=== PATIENT | male | born 1940 | race Caucasian/White ===

== ENCOUNTER 2017-12-21 11:17 | Emergency (ER) | payer MEDICARE, SELFPAY ==
[2017-12-21 11:22] VITALS: BP 138/74; PULSE 89; RESP 18; TEMP 36.6; O2SAT 100
[2017-12-21 11:35] LABS: Bilirubin Small (Negative); Blood Large (Negative); Clarity Cloudy; Glucose Negative (Negative); Ketones Trace mg/dL (Negative); Leukocyte Esterase Moderate (Negative); Nitrite Negative (Negative)
[2017-12-21 11:43] LABS: C & S Indicated? Yes; WBC >50 HPF (0-5)
--- NOTE | 2017-12-21 11:47 | ED.GENADUL_ITS ---
Disposition Clinical Impression: UTI (urinary tract infection), Syncope Disposition: HOME Condition: Serious Instructions: Urinary Tract Infection in Men (ED), Syncope (ED) Additional Instructions: Please drink plenty of fluids to stay hydrated. Take antibiotic as prescribed. Please follow-up with your primary care physician. Call tomorrow. Return to the emergency department immediately for any worsening or new concerning symptoms. Prescriptions: Cephalexin [Keflex] 500 mg PO QID #27 capsule Referrals: Brandy Suresh [Primary Care Provider] - Medical Decision Making - Lab Data Laboratory Tests 12/21/17 11:30 Urine Color Yellow Urine Clarity Cloudy Urine pH 7.0 Ur Specific [place] 1.020 Urine Protein >=300 H Urine Ketones Trace H Urine Blood Large H Urine Nitrite Negative Urine Bilirubin Small H Urine Urobilinogen 1.0 H Ur Leukocyte Esterase Moderate H Urine RBC Not Applicable Urine WBC >50 Ur Epithelial Cells Not Applicable Urine Crystals Not Applicable Urine Bacteria Not Applicable Urine Mucus Not Applicable Ur Culture Indicated? Yes Urine Glucose Negative Laboratory Tests 12/21/17 12/21/17 12/21/17 11:30 11:58 11:58 WBC 18.14 H RBC 4.81 Hgb 15.0 Hct 43.5 MCV 90.4 MCH 31.2 MCHC 34.5 RDW 12.5 Plt Count 214 MPV 9.0 Immature Gran % 0.4 Neutrophils % 84.3 Lymphocytes % 9.6 Monocytes % 5.5 Eosinophils % 0.1 Basophils % 0.1 Absolute Neutrophils 15.29 H Absolute Lymphocytes 1.74 Absolute Monocytes 1.00 H Absolute Eosinophils 0.02 Absolute Basophils 0.02 Sodium 135 L Potassium 4.2 Chloride 100 Carbon Dioxide 29.5 Anion Gap 5.5 BUN 13 Creatinine 1.09 Estimated GFR/1.73 m2 >= 60.00 Glucose 110 H Calcium 8.3 L Magnesium 1.7 L Total Bilirubin 0.7 AST 13 L ALT 18 Alkaline Phosphatase 78 Troponin I < 0.02 Total Protein 7.2 Albumin 3.3 L Urine Color Yellow Urine Clarity Cloudy Urine pH 7.0 Ur Specific [place] 1.020 Urine Protein >=300 H Urine Ketones Trace H Urine Blood Large H Urine Nitrite Negative Urine Bilirubin Small H Urine Urobilinogen 1.0 H Ur Leukocyte Esterase Moderate H Urine RBC Not Applicable Urine WBC >50 Ur Epithelial Cells Not Applicable Urine Crystals Not Applicable Urine Bacteria Not Applicable Urine Mucus Not Applicable Ur Culture Indicated? Yes Urine Glucose Negative Results reviewed for labs ordered during visit: Yes - Medical Decision Making 11:52 --77-year-old male with history of urinary tract infection in the past, presents with increased urinary frequency and dysuria over the past couple days as well as recent fever and fatigue. Patient did experience a brief syncopal episode this morning at congregational and did not sustain trauma. Currently hemodynamically stable. Concern for UTI and dehydration. Consider other etiology for syncope. Patient has no chest pain or shortness of breath at this time. ECG reviewed and interpreted by me: Normal sinus rhythm 86 bpm, normal axis, peaked appearing t's V3 to V6. Nondiagnostic. Plan to check electrolytes as well as urinalysis. 13:00 --labs reviewed and leukocytosis noted. Urinalysis concerning for UTI. Plan to treat with ceftriaxone IV. 14:00 -- Patient reassessed: Remained hemo-dynamically stable. Orthostatic vitals taken after IV fluid bolus normal. Plan to discharge the patient on Keflex with close outpatient follow-up. I will asked care management to assist in arranging outpatient follow-up early this week given the syncopal episode and urinary tract infection. History of Present Illness - General Chief complaint: Urinary Stated complaint: UTI? Time Seen by Provider: 12/21/17 11:24 Source: patient, RN notes reviewed Mode of arrival: ambulatory Limitations: no limitations - History of Present Illness Initial comments: 77-year-old male with history of urinary tract infection from E. coli in the past, presents with chief complaint of dysuria. Patient notes that he has had painful urination for the past 2-3 days. He has associated increased urinary frequency over the same period of time. Patient notes associated fatigue and subjective fever over the past 1 week. Patient notes he generally just has not been feeling well. He also notes some constipation recently but did have a loose stool today. Patient also notes that while he was at congregational today standing for a couple minutes, he suddenly experienced a dizzy spell and had loss of consciousness. He did fall but did not hit his head. He has no headache at this time. No chest pain, palpitations or shortness of breath. Patient was evaluated by EMS refused transport to the hospital but did drive himself to the hospital sometime later. - Related Data Aspirin [Aspir 81] 81 mg PO PRN PRN 02/21/15 Cephalexin [Keflex] 500 mg PO QID #27 capsule 12/21/17 Allergies Allergy/AdvReac Type Severity Reaction Status Date / Time No Known Allergies Allergy Unverified 12/21/17 11:29 Review of Systems Constitutional: fever Respiratory: denies: cough, shortness of breath Cardiovascular: denies: chest pain, palpitations, syncope Gastrointestinal: denies: abdominal pain, nausea, vomiting Genitourinary: dysuria, frequency, hematuria (Small this morning). denies: discharge, testicular pain, testicular mass Neurological: denies: headache, weakness, numbness Comment: All other systems reviewed and negative Past Medical History - Past Medical History Medical history: hypertension Urinary tract infection - Social History Smoking status: never smoker General Exam - General Limitations: no limitations General appearance: alert, in no apparent distress - Head Head exam: Present: atraumatic, normocephalic - Eye Eye exam: Present: PERRL, EOMI - ENT ENT exam: Present: mucous membranes dry - Respiratory Respiratory exam: Present: normal lung sounds bilaterally. Absent: respiratory distress, wheezes, rales, rhonchi - Cardiovascular Cardiovascular Exam: Present: regular rate, normal rhythm, normal heart sounds - GI/Abdominal GI/Abdominal exam: Present: soft, normal bowel sounds. Absent: distended, tenderness, guarding, rebound, rigid - Extremities Exam Extremities exam: Absent: pedal edema, calf tenderness - Neurological Exam Neurological exam: Present: alert, CN II-XII intact, normal gait. Absent: altered, motor sensory deficit - Psychiatric Psychiatric exam: Present: normal affect - Skin Skin exam: Present: warm, dry, intact Course Vital Signs - 24 hr 12/21/17 11:22 Temperature 36.6 C Pulse 89 Respiratory 18 Rate Blood Pressure 138/74 Pulse Oximetry 100
[2017-12-21] MEDS: Lactated Ringers 1,000 ML 1000 ML IV (12:01)
[2017-12-21 12:03] LABS: Abs Immature Grans 0.07 k/cumm (0.0-0.09); Absolute Basophil Count 0.02 k/cumm (0.0-0.2); Absolute Lymphocyte Count 1.74 k/cumm (1.2-3.4); Basophils % 0.1; Eosinophils % 0.1; HCT 43.5 % (40.0-50.0); Immature Grans % 0.4; Lymphocytes % 9.6; Mean Corp. HGB Concentration 34.5 g/dL (32.0-36.0); Mean Corpuscular Hemoglobin 31.2 pg (27.0-33.0); Mean Corpuscular Volume 90.4 fL (80-95); Monocytes % 5.5; Neutrophils % 84.3; Platelet Count 214 x1000/uL (130-400); RBC 4.81 m/cumm (4.50-6.00); RBC Distribution Width 12.5 % (11.8-14.1); White Blood Cell Count 18.14 k/cumm (4.4-10.8)
[2017-12-21 12:08] LABS: Absolute Eosinophil Count 0.02 k/cumm (0.0-0.7); Absolute Neutrophil Count 15.29 k/cumm (1.2-6.7)
[2017-12-21 12:23] LABS: ALT 18 U/L (12-78); AST 13 U/L (15-37); Albumin 3.3 g/dL (3.4-5.0); Alkaline Phosphatase 78 U/L (46-116); Anion Gap 5.5 mmol/L (3-11); BUN 13 mg/dL (7-18); Bilirubin, Total 0.7 mg/dL (0.2-1.0); CO2 29.5 mmol/L (21.0-32.0); CREATININE 1.09 mg/dL (0.70-1.30); Calcium 8.3 mg/dL (8.5-10.1); Chloride 100 mmol/L (98-107); Glucose 110 mg/dL (70-100); Magnesium 1.7 mg/dL (1.8-2.4); Potassium 4.2 mmol/L (3.5-5.1); Sodium 135 mmol/L (136-145); Total Protein 7.2 g/dL (6.4-8.2)
[2017-12-21 12:34] LABS: Troponin I < 0.02 ng/mL (0.00-0.06)
[2017-12-21 13:20] VITALS: BP 138/77; BP 152/67; BP 154/85; PULSE 84; PULSE 86; PULSE 87
[2017-12-21] MEDS: Magnesium Oxide 400 MG TAB PO (14:22)
[2017-12-21 14:48] VITALS: BP 131/74; PULSE 78; RESP 16; TEMP 36.6; O2SAT 100
--- NOTE | 2017-12-22 11:46 | PDOC.ERCMPRO ---
Care Management Progress Note 12/22-Dr. Suyapa Martínez requested assistance with a PCP (Demetrice) f/u this week for UTI/syncopal episode. Referral faxed to [facility] today.
== END 2017-12-21 14:46 | disposition home or self-care (01) ==
PROVIDERS: Emergency Provider Student in an Organized Health Care Education/Training Program; PCP Family Medicine
DX: N39.0 Urinary tract infection, site not specified (principal); R55 Syncope and collapse; I10 Essential (primary) hypertension; Z87.440 Personal history of urinary (tract) infections
CPT/HCPCS: 93005; 96361; 96365; 99284 ×2; J0696; 36415; 80053; 81003; 81015; 83735; 84484; 85025; 87086; 93010

== ENCOUNTER → 2017-12-22 14:07 | Outpatient (REF) | payer MEDICARE, SELFPAY ==
[2017-12-22 22:42] LABS: Bilirubin Negative (Negative); Blood Negative (Negative); Clarity Clear; Glucose Negative (Negative); Ketones Negative (Negative); Leukocyte Esterase Small (Negative); Nitrite Negative (Negative); Urobilinogen 0.2 EU/dL (Up TO 0.2)
[2017-12-22 22:56] LABS: Bacteria Few HPF (Negative); C & S Indicated? Yes; Casts Negative LPF (Negative); Crystals Negative HPF (Negative); Epithelial Cells Negative HPF (Negative); Mucus Negative (Negative); WBC 20-50 HPF (0-5)
== END ==
LOC: NCHCN 14:07
PROVIDERS: PCP Family Medicine; Visit Provider Nurse Practitioner
DX: R30.0 Dysuria (principal); R31.9 Hematuria, unspecified
CPT/HCPCS: 81003; 81015; 87086

== ENCOUNTER 2018-06-01 19:47 | Emergency (ER) | payer MEDICARE, SELFPAY ==
[2018-06-01 20:14] VITALS: BP 184/86; PULSE 82; RESP 16; TEMP 36.2; O2SAT 97
[2018-06-01 21:07] VITALS: RESP 18
--- NOTE | 2018-06-01 21:12 | ED.GENADUL_ITS ---
Discharge Plan Disposition Patient Disposition: HOME Condition: Improving Discharge Details Chief Complaint: GenMedical Clinical Impression: Fatigue, Elevated blood pressure reading Primary Care Provider: Brandy Suresh ED Provider: Juan Francisco Morales Home Meds and New Rx's Prescriptions: Continued aspirin [Aspir-81] 81 MG tablet,delayed release (DR/EC) 81 mg PO PRN PRNRF: 0 Discharge Instructions Instructions: Hypertension (ED) Additional Instructions: Your EKG today revealed changes compared to prior EKG. It is recommended thatyou have an outpatient stress test. Please discuss this with your doctor tomorrow. If your blood pressure remains elevated, you may need treatment for this. Please discuss this with your doctor. Return to the ER for any worsening or new concerning symptoms. Referrals: Brandy Suresh [Primary Care Provider] - Discharge Data Discharge Date/Time-TO BE ENTERED AT DEPARTURE: 06/02/18 00:53 Medical Decision Making <Lenny Martínez MD - Last Filed: 06/30/18 21:46> 23:10 --78-year-old male here with elevated blood pressure and generally not feeling well today. Patient quite anxious about recently being diagnosed with macular degeneration. I suspect his elevated blood pressure is related to this anxiety. He has no associated chest pain or shortness of breath. No abdominal pain. No headache or focal neurologic deficits. Screening EKG was reviewed and interpreted by me: Sinus rhythm 78 bpm, normal axis, T wave inversions are noted in lead III, there is significant artifact and a second EKG was obtained. Second EKG reviewed and interpreted by me: Sinus rhythm 72 bpm, normal axis, T wave inversions are noted in lead III and aVF. Peaked Ts noted. T wave inversions noted in lead III are new compared to prior EKG from 12/21/2017. Consider ischemic heart disease. Initial troponin negative. Plan for delta troponin. <Juan Francisco Morales MD - Last Filed: 06/02/18 00:50> Received signout from Dr. Martínez. Please see his note regarding details of initial presentation, history, plan of care. Patient's repeat troponin was unremarkable. He remains chest pain-free. He has an outpatient stress test arranged by Dr. Martínez. Discussed with him home management as well as return precautions. He is stable for discharge at this time Lab Data Lab results reviewed: Yes I reviewed the patient's lab results. Laboratory Results - last 24 hr 06/01/18 06/01/18 06/02/18 21:29 21:29 00:15 WBC 8.86 RBC 5.32 Hgb 16.5 Hct 47.9 MCV 90.0 MCH 31.0 MCHC 34.4 RDW 12.7 Plt Count 210 MPV 9.6 Immature Gran % 0.1 Neutrophils % 56.5 Lymphocytes % 33.2 Monocytes % 8.9 Eosinophils % 1.0 Basophils % 0.3 Absolute Neutrophils 5.00 Absolute Lymphocytes 2.94 Absolute Monocytes 0.79 H Absolute Eosinophils 0.09 Absolute Basophils 0.03 Sodium 140 Potassium 4.4 Chloride 102 Carbon Dioxide 30.0 Anion Gap 8.0 BUN 13 Creatinine 0.96 Estimated GFR/1.73 m2 >= 60.00 Glucose 106 H Calcium 9.0 Magnesium 2.1 Total Bilirubin 0.6 AST 24 ALT 39 Alkaline Phosphatase 104 Troponin I 0.02 0.02 Total Protein 8.1 Albumin 4.2 HPI <Lenny Martínez MD - Last Filed: 06/30/18 21:46> General Mode of arrival: ambulatory . Date/Time Provider Initiated Documentation: 06/01/18 21:09 . Limitations to Documentation: no limitations . Information obtained by: patient . HPI Narrative: 78-year-old male with history of intermittent hypertension, early macular degeneration, here with chief complaint of elevated blood pressure. Patient notes he was going to see an afternoon babysitter in [place] today and was quite anxious and stressed about diagnosis of macular degeneration. He notes that when he checked his blood pressure in the ophthalmology office it was elevated with a systolic of 200. He notes that he is generally not been feeling well today. Specifically states he is felt tired with weakness in his legs. No associated chest pain or shortness of breath. No leg swelling or calf pain. Symptoms are mild. No modifiers. Related Data Home Medications Medication Instructions Recorded Confirmed aspirin [Aspir-81] 81 mg PO PRN PRN 06/18/14 06/01/18 Allergies Allergy/AdvReac Type Severity Reaction Status Date / Time No Known Allergies Allergy Unverified 06/01/18 20:23 General Stated Complaint: GenMedical TALIB: 3 Review of Systems <Lenny Martínez MD - Last Filed: 06/30/18 21:46> Review of Systems All systems reviewed & are unremarkable except as noted in HPI and below Constitutional Reports as per HPI and Denies fever(s) Cardiovascular Denies chest pain, Denies diaphoresis, Denies syncope, Denies lightheadedness, Denies palpitations and Denies dyspnea Respiratory Denies cough and Denies dyspnea Neurologic Denies syncope Endocrine Denies palpitations PFSH <Lenny Martínez MD - Last Filed: 06/30/18 21:46> Medical History Macular degeneration (Chronic) Social History Smoking and Tabacco status: Never Exam <Lenny Martínez MD - Last Filed: 06/30/18 21:46> Const General: cooperative and no acute distress HENMT Head: normocephalic and atraumatic Mouth: moist mucous membranes Eyes Conjunctivae: normal conjunctivae Sclera: normal sclerae EOM: EOM intact bilaterally Neck Neck: trachea midline and supple Resp Auscultation: clear to auscultation bilaterally, no rales, no rhonchi and no wheezes Cardio Jugular venous pressure: no JVD Rate: regular rate and not tachycardic Rhythm: regular rhythm GI Palpation: soft, not firm, no guarding, no masses, not rigid and nontender Skin General skin exam: no rashes or lesions noted Neuro General: alert, awake, oriented x3 and tone normal Extrem General: no edema Psych Appearance: grossly normal Mental Status: mental status grossly normal Speech and Movement: speech and movement normal Mood: anxious mood Affect: normal affect Course <Lenny Martínez MD - Last Filed: 06/30/18 21:46> Vital Signs Temperature 36.2 C L 06/01/18 20:14 Pulse 82 06/01/18 20:14 Respiratory Rate 16 06/01/18 20:14 Blood Pressure 184/86 H 06/01/18 20:14 Pulse Oximetry 97 06/01/18 20:14 Temperature 36.2 C L 06/01/18 20:14 Temperature Source Skin 06/01/18 20:14 Pulse 82 06/01/18 20:14 Respiratory Rate 18 06/01/18 21:07 Respiratory Effort Non-Labored 06/01/18 21:07 Respiratory Depth Normal 06/01/18 21:07 Respiratory Pattern Normal 06/01/18 21:07 Blood Pressure 184/86 H 06/01/18 20:14 Blood Pressure Position Sitting 06/01/18 20:14 Pulse Oximetry 97 06/01/18 20:14 Oxygen Delivery Method Room Air 06/01/18 20:14 Oxygen Flow Rate 0 06/01/18 20:14 Pain Level 0 06/01/18 20:14 Sign Out <Lenny Martínez MD - Last Filed: 06/30/18 21:46> Sign Out Data: Sign Out Comment: Plan for repeat trop. If neg, plan for outpatient follow-up and stress testing. Last updated by Lenny Martínez MD at 06/01/18 23:50
[2018-06-01 21:37] LABS: Abs Immature Grans 0.01 k/cumm (0.0-0.09); Absolute Basophil Count 0.03 k/cumm (0.0-0.2); Absolute Eosinophil Count 0.09 k/cumm (0.0-0.7); Absolute Lymphocyte Count 2.94 k/cumm (1.2-3.4); Absolute Monocyte Count 0.79 k/cumm (0.11-0.7); Basophils % 0.3; HCT 47.9 % (40.0-50.0); HGB 16.5 g/dL (13.5-17.5); Immature Grans % 0.1; Lymphocytes % 33.2; Mean Corp. HGB Concentration 34.4 g/dL (32.0-36.0); Mean Platelet Volume 9.6 fL (8.0-11.0); Monocytes % 8.9; Neutrophils % 56.5; Platelet Count 210 x1000/uL (130-400); RBC 5.32 m/cumm (4.50-6.00); RBC Distribution Width 12.7 % (11.8-14.1); White Blood Cell Count 8.86 k/cumm (4.4-10.8)
[2018-06-01 21:49] LABS: ALT 39 U/L (12-78); AST 24 U/L (15-37); Albumin 4.2 g/dL (3.4-5.0); Alkaline Phosphatase 104 U/L (46-116); BUN 13 mg/dL (7-18); Bilirubin, Total 0.6 mg/dL (0.2-1.0); CREATININE 0.96 mg/dL (0.70-1.30); Chloride 102 mmol/L (98-107); Glucose 106 mg/dL (70-100); Magnesium 2.1 mg/dL (1.8-2.4); Potassium 4.4 mmol/L (3.5-5.1); Sodium 140 mmol/L (136-145); Total Protein 8.1 g/dL (6.4-8.2); Troponin I 0.02 ng/mL (0.00-0.06)
[2018-06-01 22:15] VITALS: BP 173/89; PULSE 84; RESP 18; TEMP 36.5; O2SAT 98
[2018-06-01 23:57] VITALS: BP 194/91; PULSE 80; RESP 16; O2SAT 99
[2018-06-02 00:42] LABS: Troponin I 0.02 ng/mL (0.00-0.06)
== END 2018-06-02 00:53 | disposition home or self-care (01) ==
PROVIDERS: Student in an Organized Health Care Education/Training Program; Emergency Provider Emergency Medicine; PCP Family Medicine
DX: R53.83 Other fatigue (principal); R03.0 Elevated blood-pressure reading, without diagnosis of hypertension
CPT/HCPCS: 36415; 80053; 93005; 99284; 83735; 84484; 85025; 93010

== ENCOUNTER 2018-06-05 00:27 | Outpatient (CLI) | payer MEDICARE, SELFPAY ==
--- NOTE | 2018-06-05 13:00 | ETT_ITS ---
*[facility]* *[facility]* [address] [place] [address] Stress Electrocardiography Carlos protocol Date of study: 06/05/2018 *PATIENT PRESENTATION* Height: 167.6cm (66in) Blood Pressure: Weight: 68.2kg (150lb) BSA: 1.79m^2 Referring physician: Lenny Martínez Ordering physician: Lenny Martínez Impressions: Abnormal study , ST depressions without angina. Summary: 1. Stress ECG conclusions: The stress ECG is positive. Maximal ST change occurred during the recovery phase (3-6min into recovery). Stress ECG change: downsloping depression. Severity: 1.5-2.7mm. In lead groups: II, III, aVF and V4-6. Occasional ventricular ectopy. 2. Stress: The target heart rate was achieved. There is resting hypertension with a blunted response to stress. The patient experienced no chest pain during stress. Exercise capacity is mildly diminished for age. Recommendations: Discussed results with PCP Dr. Suresh, recommended cardiology follow-up. Indication: I10. History: REASON FOR VISIT: PT WAS SEEN IN THE ED ON 06/01/18 FOR EVALUATION OF FATIGUE AND AN ELEVATED BLOOD PRESSURE READING. PT HAD CHECKED HIS BLOOD PRESSURE THAT SAME DAY AND REPORTED THE SYSTOLIC READING WAS 200. PT DENIES ANY CHEST PAINS OR SHORTNESS OF BREATH. Risk factors: Family history of coronary artery disease. Hypertension. Dyslipidemia. Cholesterol: 254mg/dl. HDL: 43mg/dl. LDL: 189mg/dl. Triglycerides: 125mg/dl. ALLERGIES: NO KNOWN ALLERGIES. MEDICATIONS: LISINOPRIL 20 MG DAILY. ASPIRIN 81 MG PRN. VITAMIN D. VITAMIN C. VITAMIN D3. SALPALMETTO 2-3 DAILY. POTASSIUM PRN. MAGNESIUM DAILY. LECITHIN 1 X DAILY. PT DOES NOT KNOW THE DOSES OF THESE VITAMIN SUPPLEMENTS. Protocol: Carlos protocol. Baseline ECG: SINUS RHYTHM. HR 80 BPM. Stress protocol: + +---+ + !Stage !HR !BP (mmHg) ! + +---+ + !Baseline supine !80 !182/94 (123) ! + +---+ + !Baseline standing !89 !192/90 (124) ! + +---+ + !Stage I; 1.7mph, 10degrees; 3 min !126!200/104 (136)! + +---+ + !Stage II; 2.5mph, 12degrees; 3 min!135! ! + +---+ + !Peak stress !140! ! + +---+ + !Recovery; 1 min !112!198/88 (125) ! + +---+ + !Recovery; 3 min !99 !178/78 (111) ! + +---+ + !Recovery; 9 min !99 !174/86 (115) ! + +---+ + !Recovery; 12 min !94 !168/76 (107) ! + +---+ + * Stress results: Maximal heart rate during stress was 140bpm (97% of maximal predicted heart rate). The maximal predicted heart rate was 144bpm. The target heart rate was achieved. There is resting hypertension with a blunted response to stress. The rate-pressure product for the peak heart rate and blood pressure was 67701tx Hg/min. The patient experienced no chest pain during stress. Exercise capacity is mildly diminished for age. Stress ECG: TREADMILL PORTION OF STRESS TEST ENDED IN 5 MINUTES DUE TO FATIGUE HYPERTENSIVE PRE-TREADMILL TESTING. NORMAL HEART RATE AND BLOOD PRESSURE RESPONSE TO STRESS TESTING MAX HR = 140 % OF TARGET = 97 OCCASIONAL PVCs. APPROXIMATE METS ACHIEVED = 7.[address] SEGMENT DEPRESSIONS NOTED IN LEADS V3, V4, V5 & V6 BY 3 MINUTES OF TREADMILL EXERCISE BECOMING DOWNWARD SLOPING BY 3 MINUTES POST EXERCISE (RECOVERY PERIOD) DEPRESSIONS NOTED UP UNTILL [address] COTA UPDATED. EKG RECHECKED. ST SEGMENTS RETURNED TO BASELINE. INSTRUCTIONS GIVEN TO PATIENT THAT UNTILL HIS FOLLOW UP WITH CARDIOLOGY NEXT WEEK HE IS INSTRUCTED TO: TO TAKE HIS LOW DOSE ASPIRIN DAILY. NO STRENUOUS ACTIVITY. AND TO RETURN TO THE ED IF HE EXPERIENCES ANY CHEST PAIN/PRESSURE OR GENERALLY FEELS UNWELL. PT VERBALIZED UNDERSTANDING AND LEFT CARDIAC STRESS LAB AMBULATORY AND IN NO PAIN OR DISCOMFORT. MILDLY DIMINISHED FUNCTIONAL CAPACITY FOR EXERCISE. The stress ECG is positive. Maximal ST change occurred during the recovery phase (3-6min into recovery). Stress ECG change: downsloping depression. Severity: 1.5-2.7mm. In lead groups: II, III, aVF and V4-6. Occasional ventricular ectopy. Rubio treadmill score: -9. This score predicts a moderate risk of cardiac events. Study data: Yessica Cota MD supervised and was readily available during the procedure. This study was interpreted by [facility]. Study status: Routine. Consent: The risks, benefits, and alternatives to the procedure were explained to the patient and informed consent was obtained. Procedure: Initial setup. A baseline ECG was recorded. Surface ECG leads and manual cuff blood pressure measurements were monitored. Heart sounds: Normal. Lung sounds: Normal. Treadmill exercise testing was performed using the Carlos protocol. Study completion: The patient tolerated the procedure well and was discharged from the lab. Discharge: The patient left the laboratory in stable condition. Birthdate: Patient birthdate: 1940. Sex: Gender: male. Study date: Study date: 06/05/2018. Study time: 00:01 AM. Signature Documentation: The Stress ECG portion of this study was interpreted by Yessica Cota MD. Electronically signed by Yessica Cota 06/05/2018 17:20
== END 2018-06-05 00:47 ==
PROVIDERS: PCP Family Medicine; Visit Provider Student in an Organized Health Care Education/Training Program
DX: R94.31 Abnormal electrocardiogram [ECG] [EKG] (principal); R94.30 Abnormal result of cardiovascular function study, unspecified; I10 Essential (primary) hypertension; E78.5 Hyperlipidemia, unspecified; Z82.49 Family history of ischemic heart disease and other diseases of the circulatory system
CPT/HCPCS: 93016; 93018; 93017

== ENCOUNTER 2018-07-02 00:11 | Outpatient (CLI) | payer MEDICARE, SELFPAY ==
--- NOTE | 2018-07-02 14:40 | MERGEMPI_ITS ---
*[facility]* *[facility]* [address] [place] [address] Myocardial Perfusion Imaging - SPECT Carlos protocol Date of study: 07/02/2018 *PATIENT PRESENTATION* Height: 167.6cm (66in) Blood Pressure: Weight: 66.8kg (147lb) BSA: 1.77m^2 Referring physician: Apolinar Alanis Ordering physician: Apolinar Alanis Impressions: Abnormal study after maximal exercise. Summary: 1. Myocardial perfusion imaging: There is a large sized, severely intense, predominantly reversible defect involving the basal and mid inferoseptal, apical inferior, mid inferior, and basal inferior, and basal inferolateral and mid inferolateral wall(s). This suggests large ischemia in the distribution of right coronary artery or the left circumflex coronary artery. 2. The calculated left ventricular ejection fraction after stress: 62%. LV global systolic function is normal. 3. Stress ECG conclusions: The stress ECG is positive. Maximal ST change occurred during the recovery phase. Stress ECG change: downsloping depression. Severity: greater than 3mm. In lead groups: V3, V4, V5 and V6. Delayed resolution of ST depression >15min into recovery. 4. Stress: The target heart rate was achieved. There is resting hypertension with a hypertensive response to stress. The patient experienced no chest pain during stress. Exercise capacity is mildly diminished for age. Recommendations: Highly abnormal stress EKG and nuclear imaging findings d/w patient. Strongly recommended immediate ED workup in preparation of transfer for cardiac cath. Urgent and critical findings: A critical finding, large ischemia and severe ST depression in recovery, was reported to Dr. Martínez, by Dr. Cota, on 07/02/2018, at 05:00 PM. Indication: R94.31. History: REASON FOR VISIT: FOLLOW UP MPI NUCLEAR STRESS TEST DUE TO AN ABNORMAL REGULAR TREADMIL STUDY; ST DEPRESSIONS WITHOUT ANGINA ON 06/05/18. PATIENT DENIES CHEST PAIN UPON ARRIVAL TO TESTING TODAY. SIGNIFICANT PAST MEDICAL HISTORY: HYPERTENSION--OF NOTE PATIENT REPORTS HE HAS NOT TAKEN HIS LISINOPRIL FOR APPOXIMATELY 2 WEEKS NOW. SMOKING STATUS: NEVER. EXERCISE STATUS: VERY ACTIVE WITH ADL'S. Risk factors: Family history of coronary artery disease. Hypertension. Dyslipidemia. Cholesterol: 254mg/dl. HDL: 43mg/dl. LDL: 189mg/dl. Triglycerides: 125mg/dl. Imaging Technique: Protocol: Carlos protocol. Acquisition: Gated SPECT; 1 day - rest/stress. The patient was imaged in the supine position. Attenuation correction used. Isotope administration: - Rest. Tc[99m]-sestamibi. Dose: 11.2mCi. Injection time: 11:15 PM. Injection to stress time: 00:45. - Stress. Tc[99m]-sestamibi. Dose: 31.3mCi. Injection time: 01:45 PM. 1-2 min before end of exercise Baseline ECG: SINUS RHYTHM WITH PEAKED T WAVES IN V3, V4, AND V5. HR 87 BPM. ALLERGIES: NO KNOWN ALLERGIES. MEDICATIONS: ASPIRIN 81 MG DAILY, LISINOPRIL 20 MG DAILY (HAS NOT TAKEN FORM APPROXIMATELY TWO WEEKS NOW), VITAMIN D DAILY, VITAMIN C DAILY, POTASSIUM, DAILY, MAGNESIUM DAILY, LECITIN DAILY, SALPALMETTO DAILY. Stress protocol: + +---+ + !Stage !HR !BP (mmHg) ! + +---+ + !Baseline supine !87 !170/80 (110)! + +---+ + !Baseline standing !81 !170/94 (119)! + +---+ + !Stage I; 1.7mph, 10degrees; 3 min !132! ! + +---+ + !Stage II; 2.5mph, 12degrees; 3 min!140!150/80 (103)! + +---+ + !Peak stress !143! ! + +---+ + !Recovery; 1 min !119!150/80 (103)! + +---+ + !Recovery; 3 min !96 !190/84 (119)! + +---+ + !Recovery; 6 min !100!180/86 (117)! + +---+ + !Recovery; 9 min !98 !170/86 (114)! + +---+ + !Recovery; 12 min !98 !166/84 (111)! + +---+ + !Recovery; 15 min !95 !166/84 (111)! + +---+ + * Stress results: Maximal heart rate during stress was 143bpm (99% of maximal predicted heart rate). The maximal predicted heart rate was 144bpm. The target heart rate was achieved. There is resting hypertension with a hypertensive response to stress. The rate-pressure product for the peak heart rate and blood pressure was 68134um Hg/min. The patient experienced no chest pain during stress. Exercise capacity is mildly diminished for age. Stress ECG: TREADMILL PORTION OF STRESS TEST ENDED IN 5 MINUTES 2 SECONDS DUE TO LEG FATIGUE. NORMAL HEART RATE RESPONSE TO EXERCISE. HYPERTENSIVE PRE-EXERCISE. BLOOD PRESSURE NORMOTENSIVE DURING EXERCISE. MAX HR =143. 99 % OF TARGET. NO ANGINA. ST DEPRESSIONS BECOME UPWARD SLOPING IN V3, V4, V5, V6 FIRST NOTED AT 1 MINUTE [address] DEPRESSIONS DEEPEN AND BECOME HORIZONTAL IN V3, V4, V5, V6 IN IMMEDIATE RECOVERY. ST DEPRESSIONS BECOME DOWNWARD SLOPING IN V3, V4, V5, V6 AT 3 MINUTES [address] DEPRESSIONS NEAR BASELINE AT 17 MINUTES 29 SECONDS RECOVERY. INFERIOR LEADS WITH UPWARD SLOPING ST DEPRESSIONS FIRST NOTED AT 2 MINUTES 19 SECONDS OF EXERCISE. INFERIOR LEADS BECOME HORIZONTAL AT 3 MINUTES 49 SECONDS RECOVERY. INFERIOR LEADS BECOME SLIGHLTY DOWNWARD SLOPING BEFORE RETURNING TO BASELINE AT 14 MINUTES 1 SECOND RECOVERY. APPROXIMATE METS ACHIEVED =7.05. MILDLY DIMINISHED FUNCTIONAL CAPACITY FOR EXERCISE. The stress ECG is positive. Maximal ST change occurred during the recovery phase. Stress ECG change: downsloping depression. Severity: greater than 3mm. In lead groups: V3, V4, V5 and V6. Delayed resolution of ST depression >15min into recovery. Myocardial perfusion: Imaging information: gated. Left ventricular size is normal. There is a large sized, severely intense, predominantly reversible defect involving the basal and mid inferoseptal, apical inferior, mid inferior, and basal inferior, and basal inferolateral and mid inferolateral wall(s). This suggests large ischemia in the distribution of right coronary artery or the left circumflex coronary artery. Ventricular Function (Wall Motion): The calculated left ventricular ejection fraction after stress: 62%. LV global systolic function is normal. Study data: Yessica Cota MD supervised and was readily available during the procedure. This study was interpreted by [facility]. Study status: Routine. Consent: The risks, benefits, and alternatives to the procedure were explained to the patient and informed consent was obtained. Procedure: Initial setup. A baseline ECG was recorded. Surface ECG leads and manual cuff blood pressure measurements were monitored. Heart sounds: Normal. Lung sounds: Normal. Treadmill exercise testing was performed using the Carlos protocol. Study completion: All catheters inserted during the procedure were removed. The patient tolerated the procedure well and was discharged from the lab. Discharge: The patient left the laboratory in stable condition. Birthdate: Patient birthdate: 1940. Sex: Gender: male. Study date: Study date: 07/02/2018. Study time: 00:01 AM. Signature Documentation: - The imaging portion of this study was interpreted by Nuclear Mohs Surgeon Yessica Cota MD. - The Stress ECG portion of this study was interpreted by Yessica Cota MD. Electronically signed by Yessica Cota 07/02/2018 17:29
== END 2018-07-02 00:31 ==
PROVIDERS: PCP Family Medicine; Visit Provider Student in an Organized Health Care Education/Training Program
DX: R94.30 Abnormal result of cardiovascular function study, unspecified (principal); R94.31 Abnormal electrocardiogram [ECG] [EKG]; I10 Essential (primary) hypertension; E78.5 Hyperlipidemia, unspecified; Z82.49 Family history of ischemic heart disease and other diseases of the circulatory system
CPT/HCPCS: 78452; 93016; 93018; 93017

== ENCOUNTER 2018-07-02 16:29 | Observation (INO) | payer MEDICARE, OTHER, SELFPAY ==
[2018-07-02] VITALS (35 sets, daily range): BP systolic 127–178; BP diastolic 70–96; PULSE 72–90; RESP 11–38; TEMP 36.2–36.8; O2SAT 94–99
[2018-07-02 16:51] LABS: Abs Immature Grans 0.01 k/cumm (0.0-0.09); Absolute Basophil Count 0.03 k/cumm (0.0-0.2); Absolute Eosinophil Count 0.01 k/cumm (0.0-0.7); Absolute Lymphocyte Count 1.87 k/cumm (1.2-3.4); Absolute Monocyte Count 0.53 k/cumm (0.11-0.7); Basophils % 0.4; Eosinophils % 0.1; HCT 43.6 % (40.0-50.0); HGB 14.9 g/dL (13.5-17.5); Immature Grans % 0.1; Lymphocytes % 22.9; Mean Corp. HGB Concentration 34.2 g/dL (32.0-36.0); Mean Corpuscular Volume 90.8 fL (80-95); Mean Platelet Volume 9.7 fL (8.0-11.0); Monocytes % 6.5; Platelet Count 188 x1000/uL (130-400); RBC Distribution Width 12.4 % (11.8-14.1); White Blood Cell Count 8.15 k/cumm (4.4-10.8)
--- NOTE | 2018-07-02 17:03 | W.ED.GENAD ---
Discharge Plan Disposition Patient Disposition: [facility] INPATIENT Condition: Stable Discharge Details Chief Complaint: Chest Pain Clinical Impression: Positive cardiac stress test Reason For Visit: ABNORMAL STRESS TEST Admit Date/Time: 07/02/18 18:48 Admit Provider: Brayan Fontenot Attending Provider: Brayan Fontenot Primary Care Provider: Brandy Suresh ED Provider: Lenny Martínez Hospital Course Hospital Course: Mr Yee is a 78 year old male with history of poorly controlled hypertension and macular degeneration, admitted to [facility] on 07/02/18 while awaiting a bed at [facility] and [facility] for an inpatient cardiac catheterization after an abnormal nuclear stress test as an outpatient at [facility]. The patient does not have chest pain, nor did he during the stress test. He, in fact, never gets chest pain, but does get dyspnea with exertion only. His troponins were borderline (they went up to 0.10 from 0.05, and remained at 0.10 on 3rd check; cut off for normal is 0.06) without any acute events on telemetry. He is not going to be getting a cardiac catheterization if he were transferred until Thursday 07/06 at either facility. The patient verbalized that he would like to go home with outpatient follow up for the cardiac catheterization, realizing that he is at an increased risk for having a cardiac event and promising that he would return to the hospital and call an ambulance if he felt worse (He verbalized this). I discussed the case with Dr Cota who feels that this is acceptable as long as he gets a cardiac cath early next week. His office is responsible for arranging these outpatient appointments and will be getting in touch with the patient once he is home. The patient is stable for discharge with aspirin 81 mg PO daily, metoprolol 25 mg PO BID, nitroglycerin prn, atorvastatin 80 mg PO qhs with above follow ups. Discharge Instructions Instructions: Angina, Hypertension (DC), Heart Catheterization (GEN) Additional Instructions: Return to the hospital with any chest pain, shortness of breath, dizziness, nausea/vomiting. Follow up for cardiac catheterization as instructed by Dr Cota's office. Forms: Nursing Discharge Form Referrals: Brandy Suresh [Primary Care Provider] - 07/17/18 11:55 am Yessica Cota MD [ CONSULTING PHYSICIAN] - (Contact office for information on cardiac catheterization if you're not contacted first) Discharge Data Discharge Date/Time-TO BE ENTERED AT DEPARTURE: 07/02/18 19:40 Medical Decision Making 17:09 --78-year-old male with history of hypertension, here after positive stress test, sent by cardiology for further treatment and evaluation. Patient noted to have deep ST depressions in RCA distribution well into recovery phase with large reversible inferior wall defect noted on imaging. During the stress test patient does note that he felt a bit winded and had some leg pain. He denied chest pain. Patient is currently asymptomatic. He denies chest pain or shortness of breath at this time. I have reached out to closest appropriate catheterization center [facility] to request transfer. Awaiting to hear back from cardiology. 19:00 -- I spoke with cardiology at [facility]: Dr. Reilly will accept patient in transfer but no immediate beds available, likely earliest tomorrow AM. Recommend starting atorvastatin 80mg daily, metorpolol 12.5mg q6 hr with holding parameters for HR/BP, and continue ASA. Will contact hospitalist. 18:45 -- Spoke with Dr. Fontenot who suggested contacting [facility] to check on availability. I spoke with Dr. Botello at [facility] who would be happy to accept but no beds, earliest would be tomorrow. Plan to admit here as hold for hopefully transfer to [facility] or [facility] tomorrow. HPI General Mode of arrival: ambulatory. Date/Time Provider Initiated Documentation: 07/02/18 16:35. Limitations to Documentation: no limitations. Information obtained by: patient. HPI Narrative: 78-year-old male with history of hypertension, seen here on 06/01/2018 generally not feeling well and had atypical ECG. He had 2- troponins and was discharged with plan for outpatient stress test. Patient did have outpatient exercise stress test on 06/05/2018 that revealed downsloping depression that occurred during the recovery phase and lasted approximately 3-6 minutes with severity of 1.5-2.7 mm in leads II, III, aVF, and V4-6. Patient had nuclear stress test performed today that revealed deep ST depressions in RCA distribution during recovery phase that lasted 17 minutes. Patient was noted to have a large reversible inferior defect on imaging. Patient was sent to the emergency department for further evaluation and treatment. Patient is asymptomatic at this time. He does note that during the stress test he had some pain in his legs and felt a little bit winded. He denies chest pain. Related Data Home Medications Medication Instructions Recorded Confirmed aspirin [Aspir-81] 81 mg PO PRN PRN 06/18/14 07/02/18 amlodipine 5 mg PO DAILY #30 tab 07/03/18 atorvastatin [Lipitor] 80 mg PO QPM #30 tab 07/03/18 metoprolol tartrate 25 mg PO Q12H #60 tab 07/03/18 nitroglycerin [Nitrostat] 0.4 mg SUBLINGUAL Q5 MIN PRN X3 07/03/18 PRN #20 tab Previous Rx's Medication Instructions Recorded amlodipine 5 mg PO DAILY #30 tab 07/03/18 atorvastatin [Lipitor] 80 mg PO QPM #30 tab 07/03/18 metoprolol tartrate 25 mg PO Q12H #60 tab 07/03/18 nitroglycerin [Nitrostat] 0.4 mg SUBLINGUAL Q5 MIN PRN X3 07/03/18 PRN #20 tab Allergies Allergy/AdvReac Type Severity Reaction Status Date / Time No Known Allergies Allergy Unverified 07/02/18 16:35 General Stated Complaint: Chest Pain TALIB: 2 Review of Systems Review of Systems All systems reviewed & are unremarkable except as noted in HPI and below Cardiovascular Denies chest pain, Denies syncope and Denies leg edema Respiratory Reports as per HPI and Denies cough Neurologic Denies syncope PFSH Medical History Hypertension (Chronic) Macular degeneration (Chronic) Social History Smoking and Tabacco status: Never additional social history: Mr. Yee is single and has never been , and has no children. He is a lifelong non-smoker, and denies any alcohol or illicit drug use. 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 Exam Const General: cooperative and no acute distress [facility] Head: normocephalic Mouth: moist mucous membranes Eyes Conjunctivae: normal conjunctivae Sclera: normal sclerae EOM: EOM intact bilaterally Neck Neck: trachea midline and supple Resp Auscultation: clear to auscultation bilaterally, no rales, no rhonchi and no wheezes Cardio Jugular venous pressure: no JVD Rate: regular rate and not tachycardic Rhythm: regular rhythm GI Palpation: soft, not firm, no guarding, no masses, not rigid and nontender Skin General skin exam: no rashes or lesions noted Neuro General: alert, awake, oriented x3 and tone normal Extrem General: no edema Course Vital Signs Temperature 36.8 C 07/02/18 16:33 Pulse 89 07/02/18 16:33 Respiratory Rate 20 07/02/18 16:33 Blood Pressure 178/94 H 07/02/18 16:33 Pulse Oximetry 98 07/02/18 16:33 Temperature 36.8 C 07/02/18 16:33 Temperature Source Temporal Artery Scan 07/02/18 16:33 Pulse 89 07/02/18 16:33 Respiratory Rate 20 07/02/18 16:35 Respiratory Effort Non-Labored 07/02/18 16:35 Blood Pressure 178/94 H 07/02/18 16:33 Blood Pressure Position Sitting 07/02/18 16:33 Pulse Oximetry 98 07/02/18 16:33 Oxygen Delivery Method Room Air 07/02/18 16:33 Oxygen Flow Rate 0 07/02/18 16:33 Pain Level 0 07/02/18 16:33 Lab/Test Results Lab/Test Results: Laboratory Tests Range/Units 07/02/18 16:35 WBC (4.4-10.8) k/cumm 8.15 RBC (4.50-6.00) m/cumm 4.80 Hgb (13.5-17.5) g/dL 14.9 Hct (40.0-50.0) % 43.6 MCV (80-95) fL 90.8 MCH (27.0-33.0) pg 31.0 MCHC (32.0-36.0) g/dL 34.2 RDW (11.8-14.1) % 12.4 Plt Count (130-400) x1000/uL 188 MPV (8.0-11.0) fL 9.7 Immature Gran % 0.1 Neutrophils % 70.0 Lymphocytes % 22.9 Monocytes % 6.5 Eosinophils % 0.1 Basophils % 0.4 Absolute Neutrophils (1.2-6.7) k/cumm 5.70 Absolute Lymphocytes (1.2-3.4) k/cumm 1.87 Absolute Monocytes (0.11-0.7) k/cumm 0.53 Absolute Eosinophils (0.0-0.7) k/cumm 0.01 Absolute Basophils (0.0-0.2) k/cumm 0.03
--- NOTE | 2018-07-02 17:10 | ED.GENADUL_ITS ---
Discharge Plan Disposition Patient Disposition: [facility] INPATIENT Condition: Stable Discharge Details Chief Complaint: Chest Pain Clinical Impression: Positive cardiac stress test Reason For Visit: ABNORMAL STRESS TEST Admit Date/Time: 07/02/18 18:48 Admit Provider: Brayan Fontenot Attending Provider: Brayan Fontenot Primary Care Provider: Brandy Suresh ED Provider: Lenny Martínez Hospital Course Hospital Course: Mr Yee is a 78 year old male with history of poorly controlled hypertension and macular degeneration, admitted to [facility] on 07/02/18 while awaiting a bed at [facility] and [facility] for an inpatient cardiac catheterization after an abnormal nuclear stress test as an outpatient at [facility]. The patient does not have chest pain, nor did he during the stress test. He, in fact, never gets chest pain, but does get dyspnea with exertion only. His troponins were borderline (they went up to 0.10 from 0.05, and remained at 0.10 on 3rd check; cut off for normal is 0.06) without any acute events on telemetry. He is not going to be getting a cardiac catheterization if he were transferred until Thursday 07/06 at either facility. The patient verbalized that he would like to go home with outpatient follow up for the cardiac catheterization, realizing that he is at an increased risk for having a cardiac event and promising that he would return to the hospital and call an ambulance if he felt worse (He verbalized this). I discussed the case with Dr Cota who feels that this is acceptable as long as he gets a cardiac cath early next week. His office is responsible for arranging these outpatient appointments and will be getting in touch with the patient once he is home. The patient is stable for discharge with aspirin 81 mg PO daily, metoprolol 25 mg PO BID, nitroglycerin prn, atorvastatin 80 mg PO qhs with above follow ups. Discharge Instructions Instructions: Angina, Hypertension (DC), Heart Catheterization (GEN) Additional Instructions: Return to the hospital with any chest pain, shortness of breath, dizziness, n ausea/vomiting. Follow up for cardiac catheterization as instructed by Dr Cota's office. Forms: Nursing Discharge Form Referrals: Brandy Suresh [Primary Care Provider] - 07/17/18 11:55 am Yessica Cota MD [ CONSULTING PHYSICIAN] - (Contact office for information on cardiac catheterization if you're not contacted first) Discharge Data Discharge Date/Time-TO BE ENTERED AT DEPARTURE: 07/02/18 19:40 Medical Decision Making 17:09 --78-year-old male with history of hypertension, here after positive stress test, sent by cardiology for further treatment and evaluation. Patient noted to have deep ST depressions in RCA distribution well into recovery phase with large reversible inferior wall defect noted on imaging. During the stress test patient does note that he felt a bit winded and had some leg pain. He denied chest pain. Patient is currently asymptomatic. He denies chest pain or shortness of breath at this time. I have reached out to closest appropriate catheterization center [facility] to request transfer. Awaiting to hear back from cardiology. 19:00 -- I spoke with cardiology at [facility]: Dr. Reilly will accept patient in transfer but no immediate beds available, likely earliest tomorrow AM. Recommend starting atorvastatin 80mg daily, metorpolol 12.5mg q6 hr with holding parameters for HR/BP, and continue ASA. Will contact hospitalist. 18:45 -- Spoke with Dr. Fontenot who suggested contacting [facility] to check on availability. I spoke with Dr. Botello at [facility] who would be happy to accept but no beds, earliest would be tomorrow. Plan to admit here as hold for hopefully transfer to [facility] or [facility] tomorrow. HPI General Mode of arrival: ambulatory . Date/Time Provider Initiated Documentation: 07/02/18 16:35 . Limitations to Documentation: no limitations . Information obtained by: patient . HPI Narrative: 78-year-old male with history of hypertension, seen here on 06/01/2018 generally not feeling well and had atypical ECG. He had 2- troponins and was discharged with plan for outpatient stress test. Patient did have outpatient exercise stress test on 06/05/2018 that revealed downsloping depression that occurred during the recovery phase and lasted approximately 3-6 minutes with severity of 1.5-2.7 mm in leads II, III, aVF, and V4-6. Patient had nuclear stress test performed today that revealed deep ST depressions in RCA distribution during recovery phase that lasted 17 minutes. Patient was noted to have a large reversible inferior defect on imaging. Patient was sent to the emergency department for further evaluation and treatment. Patient is asymptomatic at this time. He does note that during the stress test he had some pain in his legs and felt a little bit winded. He denies chest pain. Related Data Home Medications Medication Instructions Recorded Confirmed aspirin [Aspir-81] 81 mg PO PRN PRN 06/18/14 07/02/18 amlodipine 5 mg PO DAILY #30 tab 07/03/18 atorvastatin [Lipitor] 80 mg PO QPM #30 tab 07/03/18 metoprolol tartrate 25 mg PO Q12H #60 tab 07/03/18 nitroglycerin [Nitrostat] 0.4 mg SUBLINGUAL Q5 MIN PRN X3 07/03/18 PRN #20 tab Previous Rx's Medication Instructions Recorded amlodipine 5 mg PO DAILY #30 tab 07/03/18 atorvastatin [Lipitor] 80 mg PO QPM #30 tab 07/03/18 metoprolol tartrate 25 mg PO Q12H #60 tab 07/03/18 nitroglycerin [Nitrostat] 0.4 mg SUBLINGUAL Q5 MIN PRN X3 07/03/18 PRN #20 tab Allergies Allergy/AdvReac Type Severity Reaction Status Date / Time No Known Allergies Allergy Unverified 07/02/18 16:35 General Stated Complaint: Chest Pain TALIB: 2 Review of Systems Review of Systems All systems reviewed & are unremarkable except as noted in HPI and below Cardiovascular Denies chest pain, Denies syncope and Denies leg edema Respiratory Reports as per HPI and Denies cough Neurologic Denies syncope PFSH Medical History Hypertension (Chronic) Macular degeneration (Chronic) Social History Smoking and Tabacco status: Never additional social history: Mr. Yee is single and has never been , and has no children. He is a lifelong non-smoker, and denies any alcohol or illicit drug use. 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 Exam Const General: cooperative and no acute distress [facility] Head: normocephalic Mouth: moist mucous membranes Eyes Conjunctivae: normal conjunctivae Sclera: normal sclerae EOM: EOM intact bilaterally Neck Neck: trachea midline and supple Resp Auscultation: clear to auscultation bilaterally, no rales, no rhonchi and no wheezes Cardio Jugular venous pressure: no JVD Rate: regular rate and not tachycardic Rhythm: regular rhythm GI Palpation: soft, not firm, no guarding, no masses, not rigid and nontender Skin General skin exam: no rashes or lesions noted Neuro General: alert, awake, oriented x3 and tone normal Extrem General: no edema Course Vital Signs Temperature 36.8 C 07/02/18 16:33 Pulse 89 07/02/18 16:33 Respiratory Rate 20 07/02/18 16:33 Blood Pressure 178/94 H 07/02/18 16:33 Pulse Oximetry 98 07/02/18 16:33 Temperature 36.8 C 07/02/18 16:33 Temperature Source Temporal Artery Scan 07/02/18 16:33 Pulse 89 07/02/18 16:33 Respiratory Rate 20 07/02/18 16:35 Respiratory Effort Non-Labored 07/02/18 16:35 Blood Pressure 178/94 H 07/02/18 16:33 Blood Pressure Position Sitting 07/02/18 16:33 Pulse Oximetry 98 07/02/18 16:33 Oxygen Delivery Method Room Air 07/02/18 16:33 Oxygen Flow Rate 0 07/02/18 16:33 Pain Level 0 07/02/18 16:33 Lab/Test Results Lab/Test Results: Laboratory Tests Range/Units 07/02/18 16:35 WBC (4.4-10.8) k/cumm 8.15 RBC (4.50-6.00) m/cumm 4.80 Hgb (13.5-17.5) g/dL 14.9 Hct (40.0-50.0) % 43.6 MCV (80-95) fL 90.8 MCH (27.0-33.0) pg 31.0 MCHC (32.0-36.0) g/dL 34.2 RDW (11.8-14.1) % 12.4 Plt Count (130-400) x1000/uL 188 MPV (8.0-11.0) fL 9.7 Immature Gran % 0.1 Neutrophils % 70.0 Lymphocytes % 22.9 Monocytes % 6.5 Eosinophils % 0.1 Basophils % 0.4 Absolute Neutrophils (1.2-6.7) k/cumm 5.70 Absolute Lymphocytes (1.2-3.4) k/cumm 1.87 Absolute Monocytes (0.11-0.7) k/cumm 0.53 Absolute Eosinophils (0.0-0.7) k/cumm 0.01 Absolute Basophils (0.0-0.2) k/cumm 0.03
[2018-07-02 17:13] LABS: ALT 34 U/L (12-78); AST 27 U/L (15-37); Albumin 4.3 g/dL (3.4-5.0); Alkaline Phosphatase 82 U/L (46-116); Anion Gap 9.9 mmol/L (3-11); BUN 11 mg/dL (7-18); Bilirubin, Total 0.8 mg/dL (0.2-1.0); CO2 29.1 mmol/L (21.0-32.0); CREATININE 1.01 mg/dL (0.70-1.30); Calcium 9.1 mg/dL (8.5-10.1); Chloride 97 mmol/L (98-107); Glucose 129 mg/dL (70-100); Potassium 3.6 mmol/L (3.5-5.1); Sodium 136 mmol/L (136-145); Total Protein 7.6 g/dL (6.4-8.2); Troponin I 0.05 ng/mL (0.00-0.06)
--- NOTE | 2018-07-02 19:29 | NUR.NOTE ---
Nursing Note: patient alert and orientated, sitting in a chair, no complaints offered, denies pain or sob, monitored and vital signs stable.
--- NOTE | 2018-07-02 21:26 | W.PM.HP.N ---
Date of service: 07/02/18 Time of Service: 21:26 Assessment and Plan (1) Abnormal stress test: Current visit: Yes Status: Acute Abnormal ECG in the setting of uncontrolled blood pressure, prompting an initial abnormal stress test in early May of this year. Repeat stress test via nuclear myocardial perfusion scan performed today markedly abnormal, with evidence of a large severely intense, predominantly reversible defect suggestive of large ischemia in the distribution of either the RCA or left circumflex coronary artery. Case was discussed by the ED attending and cardiology at both [facility] and [facility] - Recommendations for initiation of daily aspirin, statin, and beta-naun therapy without a Plavix load or initiation of therapeutic anticoagulation. Mr. Yee has been accepted for transfer pending bed availability for a diagnostic and likely therapeutic left heart catheterization. Continue daily aspirin, initiate high dose, high potency statin, as well as beta-naun therapy with close monitoring on telemetry. We will also initiate amlodipine for better blood pressure control. Trend serial cardiac biomarkers - current minimal and equivocal elevation is expected in the setting of post nuclear stress test. Will repeat value in the morning. Will also check a.m. lipids and hemoglobin A1c. (2) Hypertension: Current visit: Yes Status: Chronic Beta-naun and calcium channel naun therapy as above. (3) DVT prophylaxis: Current visit: Yes Status: Acute SC Lovenox. History of Present Illness Chief Complaint: Abnormal Stress test Narrative: 78 year old man with a prior history of untreated HTN, being admitted from [facility] Emergency Department on 07/02 due to an earlier abnormal stress test. Mr. Yee does not have a significant known prior medical history. He was diagnosed with Macular Degeneration, and was seeing a specialist in [place] in early May when it was noted that his blood pressure was quite elevated. His PCPs office was contacted and an appointment made for the next morning. That evening however he felt generall 'unwell' and weak, prompting a visit to the Emergency Department where his blood pressure was again noted to be elevated, with a systolic value in the 170-190's. He was also noted to have TWave depressions in leads III and AVF by ECG, which was different when compared to his prior tracing from 11/2017. As the rest of his work-up was unremarkable and he was asymptomatic, plans were made for an outpatient stress test on 06/05 which was interpreted as abnormal, with ST Depressions without anginal symptoms. Specifically he was noted to have ST Segment changes worse during his recovery phase, with depressions noted in II, III, AVT, and V4-6. He was then scheduled for a nuclear stress test, which he had performed today, again abnormal with a large sized, severely intense reversible defect involving the distribution of the RCA or LCx. Despite the abnormality Mr. Yee did not experience any anginal symptoms, instead complaining of dyspnea. Given the findings he was referred to a tertiary center for a LH, accepted at both [facility] and [facility] but due to bed available being admitted for overnight observation until transfer. Review of Systems Review of Systems All systems reviewed & are unremarkable except as noted in HPI and below [facility] Medical History Hypertension (Chronic) Macular degeneration (Chronic) Social History Smoking and Tabacco status: Never additional social history: Mr. Yee is single and has never been , and has no children. He is a lifelong non-smoker, and denies any alcohol or illicit drug use. 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 Meds Home Medications Medication Instructions Recorded Confirmed Type aspirin [Aspir-81] 81 mg PO PRN PRN 06/18/14 07/02/18 History Allergies Allergy/AdvReac Type Severity Reaction Status Date / Time No Known Allergies Allergy Unverified 07/02/18 16:35 Exam Narrative Exam Narrative: General: Patient appears comfortable, AAOX3, NAD Neck: Supple CV: Regular, nontachycardic, S1S2, No rubs, murmurs, or gallops. Pulmonary: Clear to auscultation bilaterally, no crackles, wheezing, or rhonchi Abdomen: + Bowel Sounds, soft, nontender, nondistended Vascular: No lower extremity edema Neurologic: CN II-XII grossly intact. No focal deficits. Psych: Normal mood and affect. Results Imaging Additional studies: Exam(s) a NM:NM MPI rest & stress grp *[facility]* *[facility]* [address] [place] [address] Myocardial Perfusion Imaging - SPECT Carlos protocol Date of study: 07/02/2018 *PATIENT PRESENTATION* Height: 167.6cm (66in) Blood Pressure: Weight: 66.8kg (147lb) BSA: 1.77m^2 Referring physician: Apolinar Alanis Ordering physician: Apolinar Alanis Impressions: Abnormal study after maximal exercise. Summary: 1. Myocardial perfusion imaging: There is a large sized, severely intense, predominantly reversible defect involving the basal and mid inferoseptal, apical inferior, mid inferior, and basal inferior, and basal inferolateral and mid inferolateral wall(s). This suggests large ischemia in the distribution of right coronary artery or the left circumflex coronary artery. 2. The calculated left ventricular ejection fraction after stress: 62%. LV global systolic function is normal. 3. Stress ECG conclusions: The stress ECG is positive. Maximal ST change occurred during the recovery phase. Stress ECG change: downsloping depression. Severity: greater than 3mm. In lead groups: V3, V4, V5 and V6. Delayed resolution of ST depression >15min into recovery. 4. Stress: The target heart rate was achieved. There is resting hypertension with a hypertensive response to stress. The patient experienced no chest pain during stress. Exercise capacity is mildly diminished for age. Recommendations: Highly abnormal stress EKG and nuclear imaging findings d/w patient. Strongly recommended immediate ED workup in preparation of transfer for cardiac cath. Urgent and critical findings: A critical finding, large ischemia and severe ST depression in recovery, was reported to Dr. Martínez, by Dr. Cota, on 07/02/2018, at 05:00 PM. Indication: R94.31. History: REASON FOR VISIT: FOLLOW UP MPI NUCLEAR STRESS TEST DUE TO AN ABNORMAL REGULAR TREADMIL STUDY; ST DEPRESSIONS WITHOUT ANGINA ON 06/05/18. PATIENT DENIES CHEST PAIN UPON ARRIVAL TO TESTING TODAY. SIGNIFICANT PAST MEDICAL HISTORY: HYPERTENSION--OF NOTE PATIENT REPORTS HE HAS NOT TAKEN HIS LISINOPRIL FOR APPOXIMATELY 2 WEEKS NOW. SMOKING STATUS: NEVER. EXERCISE STATUS: VERY ACTIVE WITH ADL'S. Risk factors: Family history of coronary artery disease. Hypertension. Dyslipidemia. Cholesterol: 254mg/dl. HDL: 43mg/dl. LDL: 189mg/dl. Triglycerides: 125mg/dl. Labs : 07/02/18 16:35 07/02/18 16:35 Laboratory Results - last 24 hr 07/02/18 07/02/18 07/02/18 16:35 16:35 20:37 WBC 8.15 RBC 4.80 Hgb 14.9 Hct 43.6 MCV 90.8 MCH 31.0 MCHC 34.2 RDW 12.4 Plt Count 188 MPV 9.7 Immature Gran % 0.1 Neutrophils % 70.0 Lymphocytes % 22.9 Monocytes % 6.5 Eosinophils % 0.1 Basophils % 0.4 Absolute Neutrophils 5.70 Absolute Lymphocytes 1.87 Absolute Monocytes 0.53 Absolute Eosinophils 0.01 Absolute Basophils 0.03 Sodium 136 Potassium 3.6 Chloride 97 L Carbon Dioxide 29.1 Anion Gap 9.9 BUN 11 Creatinine 1.01 Estimated GFR/1.73 m2 >= 60.00 Glucose 129 H Calcium 9.1 Magnesium 2.0 Total Bilirubin 0.8 AST 27 ALT 34 Alkaline Phosphatase 82 Troponin I 0.05 0.10 H* Total Protein 7.6 Albumin 4.3 Last Vital Signs Temp 36.4 C L 07/02/18 20:27 Pulse 77 03/07/19 20:27 Resp 18 07/02/18 20:27 BP 165/92 H 07/02/18 20:27 Pulse Ox 97 07/02/18 20:27
--- NOTE | 2018-07-02 21:30 | HPE_ITS ---
Date of service: 07/02/18 Time of Service: 21:26 Assessment and Plan (1) Abnormal stress test: Current visit: Yes Status: Acute Abnormal ECG in the setting of uncontrolled blood pressure, prompting an initial abnormal stress test in early May of this year. Repeat stress test via nuclear myocardial perfusion scan performed today markedly abnormal, with evidence of a large severely intense, predominantly reversible defect suggestive of large ischemia in the distribution of either the RCA or left circumflex coronary artery. Case was discussed by the ED attending and cardiology at both [facility] and [facility] - Recommendations for initiation of daily aspirin, statin, and beta-naun therapy without a Plavix load or initiation of therapeutic anticoagulation. Mr. Yee has been accepted for transfer pending bed availability for a diagnostic and likely therapeutic left heart catheterization. Continue daily aspirin, initiate high dose, high potency statin, as well as beta-naun therapy with close monitoring on telemetry. We will also initiate amlodipine for better blood pressure control. Trend serial cardiac biomarkers - current minimal and equivocal elevation is expected in the setting of post nuclear stress test. Will repeat value in the morning. Will also check a.m. lipids and hemoglobin A1c. (2) Hypertension: Current visit: Yes Status: Chronic Beta-naun and calcium channel naun therapy as above. (3) DVT prophylaxis: Current visit: Yes Status: Acute SC Lovenox. History of Present Illness Chief Complaint: Abnormal Stress test Narrative: 78 year old man with a prior history of untreated HTN, being admitted from [facility] Emergency Department on 07/02 due to an earlier abnormal stress test. Mr. Yee does not have a significant known prior medical history. He was diagnosed with Macular Degeneration, and was seeing a specialist in [place] in early May when it was noted that his blood pressure was quite elevated. His PCPs office was contacted and an appointment made for the next morning. That evening however he felt generall 'unwell' and weak, prompting a visit to the Emergency Department where his blood pressure was again noted to be elevated, with a systolic value in the 170-190's. He was also noted to have TWave depressions in leads III and AVF by ECG, which was different when compared to his prior tracing from 11/2017. As the rest of his work-up was unremarkable and he was asymptomatic, plans were made for an outpatient stress test on 06/05 which was interpreted as abnormal, with ST Depressions without anginal symptoms. Specifically he was noted to have ST Segment changes worse during his recovery phase, with depressions noted in II, III, AVT, and V4-6. He was then scheduled for a nuclear stress test, which he had performed today, again abnormal with a large sized, severely intense reversible defect involving the distribution of the RCA or LCx. Despite the abnormality Mr. Yee did not experience any anginal symptoms, instead complaining of dyspnea. Given the findings he was referred to a tertiary center for a LH, accepted at both [facility] and [facility] but due to bed available being admitted for overnight observation until transfer. Review of Systems Review of Systems All systems reviewed & are unremarkable except as noted in HPI and below [facility] Medical History Hypertension (Chronic) Macular degeneration (Chronic) Social History Smoking and Tabacco status: Never additional social history: Mr. Yee is single and has never been , and has no children. He is a lifelong non-smoker, and denies any alcohol or illicit drug use. 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 Meds Home Medications Medication Instructions Recorded Confirmed Type aspirin [Aspir-81] 81 mg PO PRN PRN 06/18/14 07/02/18 History Allergies Allergy/AdvReac Type Severity Reaction Status Date / Time No Known Allergies Allergy Unverified 07/02/18 16:35 Exam Narrative Exam Narrative: General: Patient appears comfortable, AAOX3, NAD Neck: Supple CV: Regular, nontachycardic, S1S2, No rubs, murmurs, or gallops. Pulmonary: Clear to auscultation bilaterally, no crackles, wheezing, or rhonchi Abdomen: + Bowel Sounds, soft, nontender, nondistended Vascular: No lower extremity edema Neurologic: CN II-XII grossly intact. No focal deficits. Psych: Normal mood and affect. Results Imaging Additional studies: Exam(s) a NM:NM MPI rest & stress grp *[facility]* [address] [place] [address] Myocardial Perfusion Imaging - SPECT Carlos protocol Date of study: 07/02/2018 *PATIENT PRESENTATION* Height: 167.6cm (66in) Blood Pressure: Weight: 66.8kg (147lb) BSA: 1.77m^2 Referring physician: Apolinar Alanis Ordering physician: Apolinar Alanis Impressions: Abnormal study after maximal exercise. Summary: 1. Myocardial perfusion imaging: There is a large sized, severely intense, predominantly reversible defect involving the basal and mid inferoseptal, apical inferior, mid inferior, and basal inferior, and basal inferolateral and mid inferolateral wall(s). This suggests large ischemia in the distribution of right coronary artery or the left circumflex coronary artery. 2. The calculated left ventricular ejection fraction after stress: 62%. LV global systolic function is normal. 3. Stress ECG conclusions: The stress ECG is positive. Maximal ST change occurred during the recovery phase. Stress ECG change: downsloping depression. Severity: greater than 3mm. In lead groups: V3, V4, V5 and V6. Delayed resolution of ST depression >15min into recovery. 4. Stress: The target heart rate was achieved. There is resting hypertension with a hypertensive response to stress. The patient experienced no chest pain during stress. Exercise capacity is mildly diminished for age. Recommendations: Highly abnormal stress EKG and nuclear imaging findings d/w patient. Strongly recommended immediate ED workup in preparation of transfer for cardiac cath. Urgent and critical findings: A critical finding, large ischemia and severe ST depression in recovery, was reported to Dr. Martínez, by Dr. Cota, on 07/02/2018, at 05:00 PM. Indication: R94.31. History: REASON FOR VISIT: FOLLOW UP MPI NUCLEAR STRESS TEST DUE TO AN ABNORMAL REGULAR TREADMIL STUDY; ST DEPRESSIONS WITHOUT ANGINA ON 06/05/18. PATIENT DENIES CHEST PAIN UPON ARRIVAL TO TESTING TODAY. SIGNIFICANT PAST MEDICAL HISTORY: HYPERTENSION--OF NOTE PATIENT REPORTS HE HAS NOT TAKEN HIS LISINOPRIL FOR APPOXIMATELY 2 WEEKS NOW. SMOKING STATUS: NEVER. EXERCISE STATUS: VERY ACTIVE WITH ADL'S. Risk factors: Family history of coronary artery disease. Hypertension. Dyslipidemia. Cholesterol: 254mg/dl. HDL: 43mg/dl. LDL: 189mg/dl. Triglycerides: 125mg/dl. Labs : 07/02/18 16:35 07/02/18 16:35 Laboratory Results - last 24 hr 07/02/18 07/02/18 07/02/18 16:35 16:35 20:37 WBC 8.15 RBC 4.80 Hgb 14.9 Hct 43.6 MCV 90.8 MCH 31.0 MCHC 34.2 RDW 12.4 Plt Count 188 MPV 9.7 Immature Gran % 0.1 Neutrophils % 70.0 Lymphocytes % 22.9 Monocytes % 6.5 Eosinophils % 0.1 Basophils % 0.4 Absolute Neutrophils 5.70 Absolute Lymphocytes 1.87 Absolute Monocytes 0.53 Absolute Eosinophils 0.01 Absolute Basophils 0.03 Sodium 136 Potassium 3.6 Chloride 97 L Carbon Dioxide 29.1 Anion Gap 9.9 BUN 11 Creatinine 1.01 Estimated GFR/1.73 m2 >= 60.00 Glucose 129 H Calcium 9.1 Magnesium 2.0 Total Bilirubin 0.8 AST 27 ALT 34 Alkaline Phosphatase 82 Troponin I 0.05 0.10 H* Total Protein 7.6 Albumin 4.3 Last Vital Signs Temp 36.4 C L 07/02/18 20:27 Pulse 77 03/07/19 20:27 Resp 18 07/02/18 20:27 BP 165/92 H 07/02/18 20:27 Pulse Ox 97 07/02/18 20:27
[2018-07-02] MEDS: Enoxaparin 40 MG/0.4 ML SYR SC (22:19)
[2018-07-02] MEDS: amLODIPine 5 MG TAB PO (22:22)
[2018-07-03 06:10] VITALS: BP 151/82; PULSE 79; O2SAT 99
[2018-07-03 07:03] VITALS: PULSE 82
[2018-07-03] MEDS: Metoprolol 25 MG TAB PO (08:04)
[2018-07-03] MEDS: Aspirin E.C. 81 MG TABEC PO (08:04)
[2018-07-03 08:40] LABS: Abs Immature Grans 0.01 k/cumm (0.0-0.09); Absolute Basophil Count 0.04 k/cumm (0.0-0.2); Absolute Eosinophil Count 0.07 k/cumm (0.0-0.7); Absolute Lymphocyte Count 2.32 k/cumm (1.2-3.4); Absolute Monocyte Count 0.53 k/cumm (0.11-0.7); Absolute Neutrophil Count 3.31 k/cumm (1.2-6.7); Basophils % 0.6; Eosinophils % 1.1; HCT 44.4 % (40.0-50.0); HGB 15.1 g/dL (13.5-17.5); Immature Grans % 0.2; Lymphocytes % 36.9; Mean Corpuscular Hemoglobin 31.3 pg (27.0-33.0); Mean Corpuscular Volume 91.9 fL (80-95); Mean Platelet Volume 10.1 fL (8.0-11.0); Monocytes % 8.4; Neutrophils % 52.8; Platelet Count 196 x1000/uL (130-400); RBC 4.83 m/cumm (4.50-6.00); RBC Distribution Width 12.6 % (11.8-14.1); White Blood Cell Count 6.28 k/cumm (4.4-10.8)
[2018-07-03 08:49] VITALS: BP 143/83; PULSE 76; RESP 20; TEMP 35.4; O2SAT 98
[2018-07-03 08:51] LABS: Anion Gap 7.7 mmol/L (3-11); BUN 10 mg/dL (7-18); CO2 30.3 mmol/L (21.0-32.0); CREATININE 0.95 mg/dL (0.70-1.30); Chloride 102 mmol/L (98-107); Cholesterol 218 mg/dL (50-200); Glucose 96 mg/dL (70-100); HDL Cholesterol 42 mg/dL (40-60); LDL CHOLESTEROL 159 mg/dL (<100); Potassium 4.2 mmol/L (3.5-5.1); Sodium 140 mmol/L (136-145); Triglyceride 70 mg/dL (30-150)
--- NOTE | 2018-07-03 08:54 | PDOC.CMIN ---
Care Management Initial Assess REASON FOR HOSPITALIZATION:: Abnormal stress test PAST MEDICAL HISTORY/PAST SURGICAL HISTORY:: DVT prophylaxis, Macular degeneration, abnormal stress test, hypertension PREVIOUS FUNCTIONAL STATUS/SOCIAL/FAMILY SUPPORTS:: Monster resides in [place], [place]. He is close with his siblings; his sister Angy resides in [place] and his brother, Deniz in [place], [place]. CURRENT FUNCTIONAL STATUS:: Monster was resting in bed, awaiting transfer. ADVANCE DIRECTIVES:: Angy as agent, Deniz as alternate. Has patient been provided with information about the portal?: Yes Did the patient sign up for the portal?: No CODE STATUS:: Full Code INSURANCE COVERAGE / FINANCIAL ISSUES:: Medicare. [employer] CURRENT HOME/COMMUNITY SERVICES/EQUIPMENT:: Monster was recently diagnosed with macular degeneration and was has a specialist in [place]. PRIMARY CARE PHYSICIAN:: Brandy Suresh. POTENTIAL DISCHARGE NEEDS:: Coordinated transfer. PATIENT/FAMILY EDUCATION NEEDS:: Review of medical need for transfer-critical access; observation status in interim. ANTICIPATED BARRIERS TO DISCHARGE:: Bed availability. TRANSPORTATION:: Acute-Acute: EMS coordinated by nursing motor vehicle operator road supervisor. PLAN:: Admit awaiting transfer to [facility] for [facility]; accepted at both [facility] and [facility]; awaiting bed availabiliity.
--- NOTE | 2018-07-03 09:31 | INITIAL_ITS ---
Care Management Initial Assess REASON FOR HOSPITALIZATION:: Abnormal stress test PAST MEDICAL HISTORY/PAST SURGICAL HISTORY:: DVT prophylaxis, Macular degeneration, abnormal stress test, hypertension PREVIOUS FUNCTIONAL STATUS/SOCIAL/FAMILY SUPPORTS:: Monster resides in [place], [place]. He is close with his siblings; his sister Angy resides in [place] and his brother, Deniz in [place], [place]. CURRENT FUNCTIONAL STATUS:: Monster was resting in bed, awaiting transfer. ADVANCE DIRECTIVES:: Angy as agent, Deniz as alternate. Has patient been provided with information about the portal?: Yes Did the patient sign up for the portal?: No CODE STATUS:: Full Code INSURANCE COVERAGE / FINANCIAL ISSUES:: Medicare. [employer] CURRENT HOME/COMMUNITY SERVICES/EQUIPMENT:: Monster was recently diagnosed with macular degeneration and was has a specialist in [place]. PRIMARY CARE PHYSICIAN:: Brandy Suresh. POTENTIAL DISCHARGE NEEDS:: Coordinated transfer. PATIENT/FAMILY EDUCATION NEEDS:: Review of medical need for transfer-critical access; observation status in interim. ANTICIPATED BARRIERS TO DISCHARGE:: Bed availability. TRANSPORTATION:: Acute-Acute: EMS coordinated by nursing supervisor transferring and boxing. PLAN:: Admit awaiting transfer to [facility] for [facility]; accepted at both [facility]; awaiting bed availabiliity.
--- NOTE | 2018-07-03 10:09 | W.PM.DS.N ---
Date of service: 07/03/18 Time of Service: 10:10 DS: Diagnosis Discharge Diagnosis (1) Abnormal stress test: Status: Acute (2) Hypertension: Status: Chronic (3) Macular degeneration: Status: Acute (4) Stable angina: Status: Acute Discharge Plan Disposition Patient Disposition: HOME Condition: Stable Discharge Details Reason For Visit: ABNORMAL STRESS TEST Admit Date/Time: 07/02/18 18:48 Admit Provider: Brayan Fontenot Attending Provider: Brayan Fontenot Primary Care Provider: Brandy Suresh [facility] Course Hospital Course: Mr Yee is a 78 year old male with history of poorly controlled hypertension and macular degeneration, admitted to [facility] on 07/02/18 while awaiting a bed at [facility] and [facility] for an inpatient cardiac catheterization after an abnormal nuclear stress test as an outpatient at [facility]. The patient does not have chest pain, nor did he during the stress test. He, in fact, never gets chest pain, but does get dyspnea with exertion only. His troponins were borderline (they went up to 0.10 from 0.05, and remained at 0.10 on check; cut off for normal is 0.06) without any acute events on telemetry. He is not going to be getting a cardiac catheterization if he were transferred until Thursday 07/06 at either facility. The patient verbalized that he would like to go home with outpatient follow up for the cardiac catheterization, realizing that he is at an increased risk for having a cardiac event and promising that he would return to the hospital and call an ambulance if he felt worse (He verbalized this). I discussed the case with Dr Cota who feels that this is acceptable as long as he gets a cardiac cath early next week. His office is responsible for arranging these outpatient appointments and will be getting in touch with the patient once he is home. The patient is stable for discharge with aspirin 81 mg PO daily, metoprolol 25 mg PO BID, nitroglycerin prn, atorvastatin 80 mg PO qhs with above follow ups. Home Meds and New Rx's Prescriptions: New atorvastatin [Lipitor] 40 mg Tablet 80 mg PO QPM Qty: 30 RF: 0 amlodipine 5 mg Tablet 5 mg PO DAILY Qty: 30 RF: 0 nitroglycerin [Nitrostat] 0.4 mg Tablet, Sublingual 0.4 mg Sublingual Q5 MIN PRN X3 PRNQty: 20 RF: 0 metoprolol tartrate 25 mg Tablet 25 mg PO Q12H Qty: 60 RF: 0 Continued aspirin [Aspir-81] 81 MG tablet,delayed release (DR/EC) 81 mg PO PRN PRNRF: 0 Discharge Instructions Instructions: Angina, Hypertension (DC), Heart Catheterization (GEN) Additional Instructions: Return to the hospital with any chest pain, shortness of breath, dizziness, nausea/vomiting. Follow up for cardiac catheterization as instructed by Dr Cota's office. Referrals: Brandy Suresh [Primary Care Provider] - Yessica Cota MD [MD CONSULTING PHYSICIAN] - (Contact office for information on cardiac catheterization if you're not contacted first) Activity:: No exercise! Equipment/Supplies:: No Equipment Needed Diet:: Low Sodium Discharge Orders Discharge Orders: Discharge Order (Routine); Ordered 07/03/18 Ordered By: Veronika Cottrell Exam Narrative Exam Narrative: General: Anxious Middle-aged male, comfortably walking around the room, anxious HEENT: EOMI, MMM Heart: RRR, no m/r/g Lungs: CTAB GI: abdomen is soft, nontender, nondistended Extremities: no e/c/c BLE's DS: Data Vitals/I&O Vitals and I&O: Vital Signs Temperature 35.4 C L 07/03/18 08:49 Temperature Source Tympanic 07/03/18 08:49 Pulse 76 07/03/18 08:49 Pulse Rhythm Regular 07/03/18 07:55 Pulse 77 07/02/18 19:20 Respiratory Rate 20 07/03/18 08:49 Respiratory Effort Non-Labored 07/03/18 07:55 Respiratory Depth Normal 07/03/18 07:55 Respiratory Pattern Normal 07/03/18 07:55 Blood Pressure 143/83 H 07/03/18 08:49 Blood Pressure Mean 98 07/02/18 19:01 Blood Pressure Position Sitting 07/02/18 16:33 Pulse Oximetry 98 07/03/18 08:49 Oxygen Delivery Method Room Air 07/03/18 08:49 Oxygen Flow Rate 0 07/03/18 08:49 Pain Level 0 07/02/18 20:04 Intake & Output 07/02/18 07/02/18 07/03/18 11:59 23:59 11:59 Weight 67.132 kg Other: Urine Color Yellow Urine Appearance Clear Clear Urine Odor Normal Voiding Methods Toilet Pending studies at discharge: MPI 07/02/18: Abnormal study after maximal exercise. Summary: 1. Myocardial perfusion imaging: There is a large sized, severely intense, predominantly reversible defect involving the basal and mid inferoseptal, apical inferior, mid inferior, and basal inferior, and basal inferolateral and mid inferolateral wall(s). This suggests large ischemia in the distribution of right coronary artery or the left circumflex coronary artery. 2. The calculated left ventricular ejection fraction after stress: 62%. LV global systolic function is normal. 3. Stress ECG conclusions: The stress ECG is positive. Maximal ST change occurred during the recovery phase. Stress ECG change: downsloping depression. Severity: greater than 3mm. In lead groups: V3, V4, V5 and V6. Delayed resolution of ST depression >15min into recovery. 4. Stress: The target heart rate was achieved. There is resting hypertension with a hypertensive response to stress. The patient experienced no chest pain during stress. Exercise capacity is mildly diminished for age. Labs on day of discharge: Labs from last 24 hours 07/03/18 07/03/18 07/03/18 06:38 06:38 06:38 WBC 6.28 RBC 4.83 Hgb 15.1 Hct 44.4 MCV 91.9 MCH 31.3 MCHC 34.0 RDW 12.6 Plt Count 196 MPV 10.1 Immature Gran % 0.2 Neutrophils % 52.8 Lymphocytes % 36.9 Monocytes % 8.4 Eosinophils % 1.1 Basophils % 0.6 Absolute Neutrophils 3.31 Absolute Lymphocytes 2.32 Absolute Monocytes 0.53 Absolute Eosinophils 0.07 Absolute Basophils 0.04 Sodium 140 Potassium 4.2 Chloride 102 Carbon Dioxide 30.3 Anion Gap 7.7 BUN 10 Creatinine 0.95 Estimated GFR/1.73 m2 >= 60.00 Glucose 96 Hemoglobin A1c Pending Calcium 9.0 Magnesium 2.0 Total Bilirubin AST ALT Alkaline Phosphatase Troponin I 0.10 H* Total Protein Albumin Triglycerides 70 Total Cholesterol 218 H LDL Cholesterol Direct 159 H HDL Cholesterol 42 07/02/18 07/02/18 07/02/18 20:37 16:35 16:35 WBC 8.15 RBC 4.80 Hgb 14.9 Hct 43.6 MCV 90.8 MCH 31.0 MCHC 34.2 RDW 12.4 Plt Count 188 MPV 9.7 Immature Gran % 0.1 Neutrophils % 70.0 Lymphocytes % 22.9 Monocytes % 6.5 Eosinophils % 0.1 Basophils % 0.4 Absolute Neutrophils 5.70 Absolute Lymphocytes 1.87 Absolute Monocytes 0.53 Absolute Eosinophils 0.01 Absolute Basophils 0.03 Sodium 136 Potassium 3.6 Chloride 97 L Carbon Dioxide 29.1 Anion Gap 9.9 BUN 11 Creatinine 1.01 Estimated GFR/1.73 m2 >= 60.00 Glucose 129 H Hemoglobin A1c Calcium 9.1 Magnesium 2.0 Total Bilirubin 0.8 AST 27 ALT 34 Alkaline Phosphatase 82 Troponin I 0.10 H* 0.05 Total Protein 7.6 Albumin 4.3 Triglycerides Total Cholesterol LDL Cholesterol Direct HDL Cholesterol [facility] Medical History Hypertension (Chronic) Macular degeneration (Chronic) Social History Smoking and Tabacco status: Never additional social history: Mr. Yee is single and has never been , and has no children. He is a lifelong non-smoker, and denies any alcohol or illicit drug use. 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
--- NOTE | 2018-07-03 10:12 | DSE_ITS ---
Date of service: 07/03/18 Time of Service: 10:10 DS: Diagnosis Discharge Diagnosis (1) Abnormal stress test: Status: Acute (2) Hypertension: Status: Chronic (3) Macular degeneration: Status: Acute (4) Stable angina: Status: Acute Discharge Plan Disposition Patient Disposition: HOME Condition: Stable Discharge Details Reason For Visit: ABNORMAL STRESS TEST Admit Date/Time: 07/02/18 18:48 Admit Provider: Brayan Fontenot Attending Provider: Brayan Fontenot Primary Care Provider: Brandy Suresh [place] [facility] Course Hospital Course: Mr Yee is a 78 year old male with history of poorly controlled hypertension and macular degeneration, admitted to [facility] on 07/02/18 while awaiting a bed at [facility] and [facility] for an inpatient cardiac catheterization after an abnormal nuclear stress test as an outpatient at [facility]. The patient does not have chest pain, nor did he during the stress test. He, in fact, never gets chest pain, but does get dyspnea with exertion only. His troponins were borderline (they went up to 0.10 from 0.05, and remained at 0.10 on check; cut off for normal is 0.06) without any acute events on telemetry. He is not going to be getting a cardiac catheterization if he were transferred until Thursday 07/06 at either facility. The patient verbalized that he would like to go home with outpatient follow up for the cardiac catheterization, realizing that he is at an increased risk for having a cardiac event and promising that he would return to the hospital and call an ambulance if he felt worse (He verbalized this). I discussed the case with Dr Cota who feels that this is acceptable as long as he gets a cardiac cath early next week. His office is responsible for arranging these outpatient appointments and will be getting in touch with the patient once he is home. The patient is stable for discharge with aspirin 81 mg PO daily, metoprolol 25 mg PO BID, nitroglycerin prn, atorvastatin 80 mg PO qhs with above follow ups. Home Meds and New Rx's Prescriptions: New atorvastatin [Lipitor] 40 mg Tablet 80 mg PO QPM Qty: 30 RF: 0 amlodipine 5 mg Tablet 5 mg PO DAILY Qty: 30 RF: 0 nitroglycerin [Nitrostat] 0.4 mg Tablet, Sublingual 0.4 mg Sublingual Q5 MIN PRN X3 PRNQty: 20 RF: 0 metoprolol tartrate 25 mg Tablet 25 mg PO Q12H Qty: 60 RF: 0 Continued aspirin [Aspir-81] 81 MG tablet,delayed release (DR/EC) 81 mg PO PRN PRNRF: 0 Discharge Instructions Instructions: Angina, Hypertension (DC), Heart Catheterization (GEN) Additional Instructions: Return to the hospital with any chest pain, shortness of breath, dizziness, nausea/vomiting. Follow up for cardiac catheterization as instructed by Dr Cota's office. Referrals: Brandy Suresh [Primary Care Provider] - Yessica Cota MD [MD CONSULTING PHYSICIAN] - (Contact office for information on cardiac catheterization if you're not contacted first) Activity:: No exercise! Equipment/Supplies:: No Equipment Needed Diet:: Low Sodium Discharge Orders Discharge Orders: Discharge Order (Routine); Ordered 07/03/18 Ordered By: Veronika Cottrell Exam Narrative Exam Narrative: General: Anxious Middle-aged male, comfortably walking around the room, anxious HEENT: EOMI, MMM Heart: RRR, no m/r/g Lungs: CTAB GI: abdomen is soft, nontender, nondistended Extremities: no e/c/c BLE's DS: Data Vitals/I&O Vitals and I&O: Vital Signs Temperature 35.4 C L 07/03/18 08:49 Temperature Source Tympanic 07/03/18 08:49 Pulse 76 07/03/18 08:49 Pulse Rhythm Regular 07/03/18 07:55 Pulse 77 07/02/18 19:20 Respiratory Rate 20 07/03/18 08:49 Respiratory Effort Non-Labored 07/03/18 07:55 Respiratory Depth Normal 07/03/18 07:55 Respiratory Pattern Normal 07/03/18 07:55 Blood Pressure 143/83 H 07/03/18 08:49 Blood Pressure Mean 98 07/02/18 19:01 Blood Pressure Position Sitting 07/02/18 16:33 Pulse Oximetry 98 07/03/18 08:49 Oxygen Delivery Method Room Air 07/03/18 08:49 Oxygen Flow Rate 0 07/03/18 08:49 Pain Level 0 07/02/18 20:04 Intake & Output 07/02/18 07/02/18 07/03/18 11:59 23:59 11:59 Weight 67.132 kg Other: Urine Color Yellow Urine Appearance Clear Clear Urine Odor Normal Voiding Methods Toilet Pending studies at discharge: MPI 07/02/18: Abnormal study after maximal exercise. Summary: 1. Myocardial perfusion imaging: There is a large sized, severely intense, predominantly reversible defect involving the basal and mid inferoseptal, apical inferior, mid inferior, and basal inferior, and basal inferolateral and mid inferolateral wall(s). This suggests large ischemia in the distribution of right coronary artery or the left circumflex coronary artery. 2. The calculated left ventricular ejection fraction after stress: 62%. LV global systolic function is normal. 3. Stress ECG conclusions: The stress ECG is positive. Maximal ST change occurred during the recovery phase. Stress ECG change: downsloping depression. Severity: greater than 3mm. In lead groups: V3, V4, V5 and V6. Delayed resolution of ST depression >15min into recovery. 4. Stress: The target heart rate was achieved. There is resting hypertension with a hypertensive response to stress. The patient experienced no chest pain during stress. Exercise capacity is mildly diminished for age. Labs on day of discharge: Labs from last 24 hours 07/03/18 07/03/18 07/03/18 06:38 06:38 06:38 WBC 6.28 RBC 4.83 Hgb 15.1 Hct 44.4 MCV 91.9 MCH 31.3 MCHC 34.0 RDW 12.6 Plt Count 196 MPV 10.1 Immature Gran % 0.2 Neutrophils % 52.8 Lymphocytes % 36.9 Monocytes % 8.4 Eosinophils % 1.1 Basophils % 0.6 Absolute Neutrophils 3.31 Absolute Lymphocytes 2.32 Absolute Monocytes 0.53 Absolute Eosinophils 0.07 Absolute Basophils 0.04 Sodium 140 Potassium 4.2 Chloride 102 Carbon Dioxide 30.3 Anion Gap 7.7 BUN 10 Creatinine 0.95 Estimated GFR/1.73 m2 >= 60.00 Glucose 96 Hemoglobin A1c Pending Calcium 9.0 Magnesium 2.0 Total Bilirubin AST ALT Alkaline Phosphatase Troponin I 0.10 H* Total Protein Albumin Triglycerides 70 Total Cholesterol 218 H LDL Cholesterol Direct 159 H HDL Cholesterol 42 07/02/18 07/02/18 07/02/18 20:37 16:35 16:35 WBC 8.15 RBC 4.80 Hgb 14.9 Hct 43.6 MCV 90.8 MCH 31.0 MCHC 34.2 RDW 12.4 Plt Count 188 MPV 9.7 Immature Gran % 0.1 Neutrophils % 70.0 Lymphocytes % 22.9 Monocytes % 6.5 Eosinophils % 0.1 Basophils % 0.4 Absolute Neutrophils 5.70 Absolute Lymphocytes 1.87 Absolute Monocytes 0.53 Absolute Eosinophils 0.01 Absolute Basophils 0.03 Sodium 136 Potassium 3.6 Chloride 97 L Carbon Dioxide 29.1 Anion Gap 9.9 BUN 11 Creatinine 1.01 Estimated GFR/1.73 m2 >= 60.00 Glucose 129 H Hemoglobin A1c Calcium 9.1 Magnesium 2.0 Total Bilirubin 0.8 AST 27 ALT 34 Alkaline Phosphatase 82 Troponin I 0.10 H* 0.05 Total Protein 7.6 Albumin 4.3 Triglycerides Total Cholesterol LDL Cholesterol Direct HDL Cholesterol [facility] Medical History Hypertension (Chronic) Macular degeneration (Chronic) Social History Smoking and Tabacco status: Never additional social history: Mr. Yee is single and has never been , and has no children. He is a lifelong non-smoker, and denies any alcohol or illicit drug use. 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
[2018-07-03] MEDS: amLODIPine 5 MG TAB PO (10:19)
[2018-07-03 10:42] LABS: Hemoglobin A1C 5.8 % (4.5-6.2)
[2018-07-03 10:50] VITALS: PULSE 72
== END 2018-07-03 10:55 | disposition home or self-care (01) ==
LOC: ER 19:28 → MS 19:49
PROVIDERS: Admitting Provider Internal Medicine; Emergency Provider Student in an Organized Health Care Education/Training Program; PCP Family Medicine; Visit Provider Internal Medicine
DX: R94.39 Abnormal result of other cardiovascular function study (principal); I10 Essential (primary) hypertension; H35.30 Unspecified macular degeneration; I20.8 Other forms of angina pectoris; Z75.1 Person awaiting admission to adequate facility elsewhere
CPT/HCPCS: 36415; 78452; 80048; 80053; 80061; 83721; 93005; 93016; 93018; 99219; 99239; 99285; J1650; 83036; 83735; 84484; 85025; 93010; 93017; 99217; G0378

== ENCOUNTER 2018-08-18 11:56 | Outpatient (RCR) | payer MEDICARE, OTHER, SELFPAY | END 2018-08-25 23:59 | disposition home or self-care (01) | LOC: CR 11:56 | PROVIDERS: PCP Family Medicine; Visit Provider Family Medicine | DX: Z51.89 Encounter for other specified aftercare (principal) ==

== ENCOUNTER 2018-09-11 09:00 | Outpatient (RCR) | payer MEDICARE, OTHER, SELFPAY | END 2018-09-25 23:59 | disposition home or self-care (01) | LOC: CR 09:00 | PROVIDERS: PCP Family Medicine; Visit Provider Family Medicine | DX: Z51.89 Encounter for other specified aftercare (principal) | CPT/HCPCS: S9472 ==

== ENCOUNTER 2018-09-17 09:38 | Outpatient (REF) | payer MEDICARE, OTHER, SELFPAY ==
[2018-09-18 10:09] LABS: PSA, Screening 1.7 ng/ml (0-6.5)
== END 2018-09-17 09:58 ==
LOC: NCHCN 09:38
PROVIDERS: PCP Family Medicine; Visit Provider Family Medicine
DX: Z12.5 Encounter for screening for malignant neoplasm of prostate (principal)
CPT/HCPCS: 84153

== ENCOUNTER 2019-02-24 09:51 | Outpatient (REF) | payer MEDICARE, OTHER, SELFPAY ==
[2019-02-24 13:35] LABS: HCT 43.9 % (40.0-50.0); HGB 14.8 g/dL (13.5-17.5); Mean Corp. HGB Concentration 33.7 g/dL (32.0-36.0); Mean Corpuscular Hemoglobin 31.6 pg (27.0-33.0); Mean Corpuscular Volume 93.6 fL (80-95); Platelet Count 234 x1000/uL (130-400); RBC 4.69 m/cumm (4.50-6.00); RBC Distribution Width 13.1 % (11.8-14.1); White Blood Cell Count 5.22 k/cumm (4.4-10.8)
[2019-02-24 13:40] LABS: ALT 32 U/L (16-63); AST 20 U/L (15-37); Alkaline Phosphatase 81 U/L (46-116); Anion Gap 7.4 mmol/L (3-11); BUN 14 mg/dL (7-18); Bilirubin, Total 0.7 mg/dL (0.2-1.0); CO2 29.6 mmol/L (21.0-32.0); Calcium 8.8 mg/dL (8.5-10.1); Calculated LDL 140 mg/dL; Chloride 104 mmol/L (98-107); Cholesterol 203 mg/dL (50-200); Glucose 88 mg/dL (70-100); HDL Cholesterol 50 mg/dL (40-60); Potassium 4.5 mmol/L (3.5-5.1); Sodium 141 mmol/L (136-145); Total Protein 6.7 g/dL (6.4-8.2); Triglyceride 67 mg/dL (30-150)
== END 2019-02-24 10:11 ==
LOC: NCHCN 09:51
PROVIDERS: PCP Family Medicine; Visit Provider Family Medicine
DX: I25.810 Atherosclerosis of coronary artery bypass graft(s) without angina pectoris (principal); I71.9 Aortic aneurysm of unspecified site, without rupture; R03.0 Elevated blood-pressure reading, without diagnosis of hypertension
CPT/HCPCS: 80053; 80061; 85027

== ENCOUNTER 2020-02-28 20:04 | Outpatient (REF) | payer MEDICARE, OTHER, SELFPAY ==
[2020-02-28 21:17] LABS: HCT 48.5 % (40.0-50.0); MCH 30.9 pg (27.0-33.0); MCV 93.8 fL (80-95); MPV 9.8 fL (8.0-11.0); Platelet Count 202 10^3/uL (130-400); RBC 5.17 10^6/uL (4.36-5.78); RDW-SD 41.8 fL; WBC 7.17 10^3/uL (4.4-10.8)
[2020-02-28 21:26] LABS: ALT 20 U/L (16-63); AST 15 U/L (15-37); Albumin 4.1 g/dL (3.4-5.0); Alkaline Phosphatase 81 U/L (46-116); Anion Gap 4.8 mmol/L (3-11); BUN 21 mg/dL (7-18); Bilirubin, Total 0.5 mg/dL (0.2-1.0); CO2 29.2 mmol/L (21.0-32.0); CREATININE 1.06 mg/dL (0.70-1.30); Calcium 9.2 mg/dL (8.5-10.1); Calculated LDL 170 mg/dL (<100); Chloride 103 mmol/L (98-107); Cholesterol 241 mg/dL (<200); Glucose 95 mg/dL (74-106); HDL Cholesterol 47 mg/dL (40-60); Potassium 5.3 mmol/L (3.5-5.1); Sodium 137 mmol/L (136-145); Total Protein 7.1 g/dL (6.4-8.2); Triglyceride 121 mg/dL (<150)
== END 2020-02-28 20:24 ==
LOC: NCHCN 20:04
PROVIDERS: PCP Family Medicine; Visit Provider Family Medicine
DX: R03.0 Elevated blood-pressure reading, without diagnosis of hypertension (principal); Z86.79 Personal history of other diseases of the circulatory system; I71.9 Aortic aneurysm of unspecified site, without rupture
CPT/HCPCS: 80053; 80061; 85027

== ENCOUNTER 2020-06-07 22:49 | Outpatient (REF) | payer MEDICARE, OTHER, SELFPAY ==
[2020-06-07 22:06] LABS: ALT 38 U/L (16-63); AST 26 U/L (15-37); Albumin 4.2 g/dL (3.4-5.0); Alkaline Phosphatase 84 U/L (46-116); Bilirubin, Direct 0.14 mg/dL (0.00-0.20); Bilirubin, Total 0.7 mg/dL (0.2-1.0); Total Protein 7.3 g/dL (6.4-8.2)
[2020-06-07 22:18] LABS: Calculated LDL 70 mg/dL (<100); Cholesterol 134 mg/dL (<200); HDL Cholesterol 47 mg/dL (40-60); Triglyceride 89 mg/dL (<150)
[2020-06-08 18:28] LABS: PSA, Screening 2.1 ng/mL (0.0-6.5)
== END 2020-06-07 22:50 | disposition home or self-care (01) ==
LOC: NCHCN 22:49
PROVIDERS: PCP Family Medicine; Visit Provider Family Medicine
DX: E78.5 Hyperlipidemia, unspecified (principal); Z12.5 Encounter for screening for malignant neoplasm of prostate
CPT/HCPCS: 80061; 80076; 84153

== ENCOUNTER 2021-03-05 11:21 | Outpatient (REF) | payer MEDICARE, OTHER, SELFPAY ==
[2021-03-05 16:07] LABS: HCT 49.8 % (40.0-50.0); HGB 16.2 g/dL (13.5-17.5); MCH 30.3 pg (27.0-33.0); MCHC 32.5 % (32.0-36.0); MCV 93.3 fL (80-95); MPV 10.3 fL (8.0-11.0); Platelet Count 184 10^3/uL (130-400); RBC 5.34 10^6/uL (4.36-5.78); RDW 12.2 % (11.8-14.1); RDW-SD 42.2 fL; WBC 8.08 10^3/uL (4.4-10.8)
[2021-03-05 22:43] LABS: ALT 37 U/L (16-63); AST 24 U/L (15-37); Albumin 4.3 g/dL (3.4-5.0); Alkaline Phosphatase 94 U/L (46-116); Anion Gap 8.6 mmol/L (3-11); BUN 11 mg/dL (7-18); Bilirubin, Total 0.7 mg/dL (0.2-1.0); CO2 31.4 mmol/L (21.0-32.0); CREATININE 0.9 mg/dL (0.70-1.30); Calculated LDL 69 mg/dL (<100); Chloride 104 mmol/L (98-107); Cholesterol 133 mg/dL (<200); Glucose 83 mg/dL (74-106); HDL Cholesterol 44 mg/dL (40-60); Potassium 4.9 mmol/L (3.5-5.1); Sodium 144 mmol/L (136-145); Total Protein 7.2 g/dL (6.4-8.2); Triglyceride 103 mg/dL (<150)
[2021-03-06 18:01] LABS: PSA, Screening 1.9 ng/mL (0.0-6.5)
== END 2021-03-05 11:22 | disposition home or self-care (01) ==
LOC: NCHCN 11:21
PROVIDERS: PCP Family Medicine; Visit Provider Family Medicine
DX: E78.5 Hyperlipidemia, unspecified (principal); R03.0 Elevated blood-pressure reading, without diagnosis of hypertension; N40.0 Benign prostatic hyperplasia without lower urinary tract symptoms; Z12.5 Encounter for screening for malignant neoplasm of prostate
CPT/HCPCS: 80053; 80061; 84153; 85027

== ENCOUNTER 2021-12-21 08:56 | Day surgery (SDC) | payer MEDICARE, OTHER, SELFPAY ==
[2021-12-21] MEDS: Tropicam./Phenyleph. (1/2.5%) 5 ML BTL OS ×3 (09:36→09:53)
[2021-12-21 09:38] VITALS: BP 159/79; PULSE 76; RESP 20; TEMP 36.8; O2SAT 100
--- NOTE | 2021-12-21 09:46 | W.ANESPRE ---
General Info Date of Service Date Performed: 12/21/21 Height: 5 ft 5 in Weight: 66.224 kg Body Mass Index (BMI): 24.3 Surgical Procedure: Operation Date: 12/21/21 11:40 Proposed Procedure Side Surgeon p Cataract Extraction with IOL Implant Left Pratik Vance MD Meds Allergies and Home Medications Allergies Allergy/AdvReac Type Severity Reaction Status Date / Time No Known Allergies Allergy Unverified 12/21/21 09:32 Home Medication Medication Instructions Recorded aspirin 81 mg tablet,delayed 81 mg PO DAILY 06/18/14 release (Aspir-) atorvastatin 40 mg tablet (Lipitor) 80 mg PO QPM #30 tabs 07/03/18 nitroglycerin 0.4 mg sublingual 0.4 mg sublingual Q5 MIN PRN X3 07/03/18 tablet (Nitrostat) PRN #20 tabs Zn-pyg [id number] palmet 3 cap PO DAILY 12/20/21 capsule ascorbic acid (vitamin C) 500 mg 500 mg PO DAILY 12/20/21 tablet (Vitamin C) cholecalciferol (vitamin D3) 125 5,000 unit PO DAILY 12/20/21 mcg (5,000 unit) tablet (Vitamin D3) lecithin 1,000 mg chewable tablet 1,680 mg PO DAILY 12/20/21 magnesium 250 mg tablet 250 mg PO DAILY 12/20/21 potassium 99 mg tablet 99 mg PO DAILY 12/20/21 Current Visit Medications: Current Medications Generic Name Dose Route Start Last Admin Trade Name Freq PRN Reason Stop Dose Admin Acetaminophen 1,000 mg 12/21/21 06:00 Acetaminophen 500 Mg Tab PO Q4H PRN PRN Miscellaneous Medication 0 ml 12/21/21 06:00 Prednisolone 1%, Moxifloxacin 0.5%, Nepafenac 0.1% 5ml Btl OS DIRECTED [facility] Miscellaneous Medication 0 ml 12/21/21 06:00 12/21/21 09:44 Tropicam./Phenyleph. (1/2.5%) 5 Ml Btl OS 1 drp DIRECTED JASON Administration Tetracaine HCl 0 ml 12/21/21 06:00 Tetracaine 0.5% 4 Ml Btl OS DIRECTED JASON PFSH Active Problems Active Problems: Problem Status Onset Code Hypertension I10 Abnormal stress test R94.39 Macular degeneration H35.30 DVT prophylaxis Stable angina I20.8 Medical History Medical History Aortic aneurysm Pt. is unsure if he has this. Pt. 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 Hx of colonoscopy Tobacco Smoking/Tobacco Use Status: Never Alcohol Alcohol Intake: never Substance Use Substance use: Never Substance use type: does not use Vital Signs and Lab Results Vital Signs Most Recent Vital Signs in EMR: Most Recent Vital Signs Temp Pulse Resp BP Pulse Ox 36.8 C 76 20 159/79 H 100 12/21/21 09:38 12/21/21 09:38 12/21/21 09:38 12/21/21 09:38 12/21/21 09:38 Lab Results Blood Type / Crossmatch: No Data to Display Complete Blood Count: No Data to Display Complete Metabolic Panel: No Data to Display Liver Function Panel: No Data to Display Coagulation Panel: No Data to Display Cardiac Panel: No Data to Display Arterial Blood Gas: No Data to Display Venous Blood Gas: No Data to Display Pancreas Panel: No Data to Display Thyroid Panel: No Data to Display Infectious Disease: No Data to Display Blood Cultures: No Data to Display Toxicology Panel: No Data to Display Imaging and Studies Imaging and Studies Study information below may be from another EMR and interpreted by another provider. Please see original notes in EMR for more complete details. Stress Test Summary: Done pre cabg Echocardiogram Summary: Done pre cabg Anesthesia Assessment and Plan Anesthesia History Personal History: No History of Anesthesia Complications Family History: No Family History of Anesthesia Complications Exercise Tolerance Exercise Tolerance: Metabolic Equivalents>4 Cardiac & Pulmonary Exam Cardiac Exam: Normal S1/S2 Heart Sounds Pulmonary Exam: Clear Bilateral Breath Sounds Implantable Cardiac Device Does patient have a Pacemaker or an ICD?: No Airway Exam Known Difficult Airway: No Mallampati Class: 2 Mouth Opening: Normal (> 3cm) Thyromental Distance: Greater than 3 cm Neck Range of Motion: Full ROM Neck Circumference: Normal Teeth Condition: Normal Dentition and Loose or Chipped (Right upper broken tooth) ASA Classification ASA Score: ASA 3 Emergency Case?: No NPO Status NPO Status: NPO Clears >2 hours, Solids >8 hours Anesthesia Plan Resuscitation Status: Full Code Anesthesia Technique: MAC Anesthesia (Would like mko) Airway Planned: Natural Airway Monitors Used: Standard Monitors Preoperative Comments:: Wants mko for operative anxiety
[2021-12-21 10:06] VITALS: BMI 24.3
[2021-12-21] MEDS: Lidocaine 2% Jelly 6 ML SYR (10:22)
[2021-12-21] MEDS: Tetracaine 0.5% 4 ML BTL OS (10:22)
[2021-12-21] MEDS: Povidone-Iodine Ophth 30 ML BTL (10:23)
[2021-12-21] MEDS: Balanced Salt Soln.-PLUS 500 ML BAG (10:30)
--- NOTE | 2021-12-21 10:53 | W.PM.DSUDISC ---
Discharge Plan Disposition Patient Disposition: HOME Condition: Good Discharge Details Attending Provider: Pratik Vance Primary Care Provider: Brandy Suresh Home Meds and New Rx's Prescriptions: No Action aspirin [Aspir-81] 81 MG tablet,delayed release (DR/EC) 81 mg PO DAILY atorvastatin [Lipitor] 40 mg Tablet 80 mg PO QPM Qty: 30 0RF nitroglycerin [Nitrostat] 0.4 mg Tablet, Sublingual 0.4 mg Sublingual Q5 MIN PRN X3 PRNQty: 20 0RF potassium 99 mg Tablet 99 mg PO DAILY ascorbic acid (vitamin C) [Vitamin C] 500 mg Tablet 500 mg PO DAILY magnesium 250 mg Tablet 250 mg PO DAILY Saw [place] Complex Capsule 3 cap PO DAILY cholecalciferol (vitamin D3) [Vitamin D3] 125 mcg (5,000 unit) Tablet 5,000 unit PO DAILY lecithin 1,000 mg Tablet,Chewable 1,680 mg PO DAILY Discharge Instructions Stand Alone Forms: Post-op Topical Cataract, Press Ganey (DSU) Discharge Orders Discharge Orders: Discharge Order (Routine); Ordered 12/21/21 Ordered By: Pratik Vance DS: Diagnosis Discharge Diagnosis (1) Posterior subcapsular age-related cataract of left eye: Status: Resolved (2) Nuclear sclerotic cataract of left eye: Status: Resolved
[2021-12-21 10:54] VITALS: BP 123/71; PULSE 66; RESP 16; TEMP 36.3; O2SAT 97
--- NOTE | 2021-12-21 10:54 | W.PM.OP ---
Date of service: 12/21/21 Time of Service: 10:54 Operative Note Operative Note DATE OF PROCEDURE: 12/21/21 PRE-OP DIAGNOSIS: Nuclear/posterior subcapsular cataract, left eye POST-OP DIAGNOSIS: same PROCEDURE: Cataract extraction using phacoemulsification with intraocular lens implant, right eye SURGEON: Pratik Vance ANESTHESIA TYPE: Local By Surgeon and MAC Refer to Anesthesia Record ESTIMATED BLOOD LOSS: 0 PATHOLOGY: none sent COMPLICATIONS: None Patient was transported to: same day Patient's condition: stable Implants: Esa & Esa/GENIE Tecnis [id number] Indications: Progressive visual loss due to cataract, right eye Procedure Description: CATARACT SURGERY OPERATIVE REPORT PREOPERATIVE DIAGNOSIS: 1. Nuclear/posterior subcapsular cataract, left eye POSTOPERATIVE DIAGNOSIS: Same OPERATION: 1. Cataract extraction using phacoemulsification with posterior chamber intraocular lens implant, right eye. IOL: IOL Job Foreman/Model: Esa & Esa / GENIE Tecnis [id number] IOL Power: + 22.5 diopters IOL Serial Number: [id number] Optic Diameter: 6.0mm Haptic/Overall Diameter: 13.0mm PHACO INFO: Patrick [employer]ur[employer] Vision System with OZil and Active Fluidics Cumulative Dispersed Energy (CDE): 8.32 seconds SURGEON: Pratik Vance MD, MARGOT ANESTHESIA: Monitored Anesthesia Care (MAC), with local sub-tenon's anesthetic infiltration COMPLICATIONS: None SPECIMENS: None INDICATIONS FOR PROCEDURE: Patient is a 81-year-old gentleman with history of diminished visual acuity in his left eye secondary to development of nuclear/cortical cataract. The option of cataract surgery was offered to the patient and he felt he was symptomatic enough that he wished to proceed. PROCEDURE: The correct surgical eye was identified and marked as the right eye and the pupil was dilated in the preoperative area using mydriatics and cycloplegics. The dilated pupil size was 5.5 mm. Oral sedation was administered in the form of an Imprimis MKO Melt (midazolam 3mg/ketamine 25mg/ondansetron 2mg). . The patient was brought to the operating room where cardiopulmonary monitoring was instituted and surgical time-out was performed, confirming the correct operative eye and IOL power. Topical anesthesia was administered and ophthalmic povidone-iodine 5% was instilled into the conjunctival fornices. Lidocaine gel was applied to the cornea and the marcia-ocular area was prepped with Betadine 10% solution and draped in the usual sterile fashion for intraocular surgery, including an aperture drape. A Tegaderm transparent film dressing was cut in half and used to cover the lashes and lid margins. Care was taken to sequester the lashes and lid margins under the Tegaderm dressing. A lid speculum was placed between the lids of the operative eye and the Patrick LuxOR Revalia operating microscope was maneuvered into position. Jackie scissors were then used to make a conjunctival buttonhole approximately 6mm posterior to the limbus in the inferonasal quadrant. Blunt dissection was carried out to expose bare sclera, and a blunt-tipped sub-tenon?s anesthesia cannula was introduced and passed posteriorly along the globe where non-preserved plain lidocaine was injected into posterior sub-Tenon?s space. A sideport knife was used to make a paracentesis port inferotemporally. Intraocular phenylephrine/lidocaine was injected into the anterior chamber. The anterior chamber was filled with viscoelastic. A keratome knife was used to construct a 2-plane near-clear corneal tunnel extending 2.0mm into clear cornea superiortemporally. A flap was raised on the anterior capsule and capsulorhexis forceps were used to complete a continuous curvilinear capsulorhexis of 5.0 mm. Balanced salt solution was then used to perform cortical cleaving hydrodissection and nuclear hydrodelineation until the lens could be freely rotated within the capsular bag. The lens nucleus was then disassembled and removed within the capsular bag and iris plane using phacoemulsification. Residual cortical material was removed using the I/A handpiece. The posterior capsule was carefully polished to remove as much residual lens epithelial cells as safely possible. The capsular bag was then inflated and the anterior chamber deepened with viscoelastic. The lens implant described above was inserted into the capsular bag using the GENIE [place] Injector. A Kuglen hook was used to dial the IOL into position. Residual viscoelastic was then removed first from posterior to the IOL, then from the anterior chamber using the I/A handpiece. The lens implant was noted to center nicely within the capsular bag. The incisions were stromally hydrated, and the anterior chamber was reformed using BSS. Then 0.5cc of moxifloxacin 1.0mg/ml were injected into the capsular bag and anterior chamber. The incisions were checked with a Weck spear and found to be secure. Several drops of ophthalmic povidone-iodine 5% were then applied to the eye followed by two drops of Imprimis combination prednisolone/moxifloxacin/nepafenac solution. The drapes were removed and a clear plastic protective eye shield was placed over the eye. The patient was then returned to Same Day Surgery in stable condition.
[2021-12-21 11:25] VITALS: BP 130/81; PULSE 71; RESP 16; TEMP 36; O2SAT 98
--- NOTE | 2021-12-21 11:27 | W.ANESPOSTOP ---
Postoperative Evaluation Date, Time and Location Date Performed: 12/21/21 Time Performed: 11:00 Patient Location: Day Surgery Unit Vital Signs Most Recent Imported Vital Signs: Most Recent Vital Signs Temp Pulse Resp BP Pulse Ox 36.3 C L 66 16 123/71 97 12/21/21 10:54 12/21/21 10:54 12/21/21 10:54 12/21/21 10:54 12/21/21 10:54 Pain Score Most Recent Pain Score: Most Recent Pain Score Pain Level 0 12/21/21 10:54 Assessment Mental Status: Awake (Alert & Oriented to Patient Baseline) Airway and Respiratory Function: Patent airway with normal (patient baseline) respiratory exam Cardiovascular Function: Hemodynamically Stable Hydration Status: Adequately Hydrated Nausea & Vomiting: No Nausea or Vomiting Pain: Pt. Denies Any Pain Peripheral Nerve Block: Patient did not receive a nerve block
== END 2021-12-21 12:02 | disposition home or self-care (01) ==
PROVIDERS: PCP Family Medicine; Visit Provider Ophthalmology
PROC: (CPT 66984; principal; 2021-12-21 11:30)
DX: H25.042 Posterior subcapsular polar age-related cataract, left eye (principal); I10 Essential (primary) hypertension; I25.10 Atherosclerotic heart disease of native coronary artery without angina pectoris
CPT/HCPCS: 66984; V2632

== ENCOUNTER 2022-05-10 12:34 | Emergency (ER) | payer MEDICARE, OTHER, SELFPAY ==
[2022-05-10 12:41] VITALS: BP 175/84; PULSE 85; RESP 18; TEMP 37.1; O2SAT 96
--- NOTE | 2022-05-10 13:00 | DI.CT_ITS ---
Exam(s) CT BRAIN NECK CTA EXAM: CT BRAIN NECK CTA CLINICAL HISTORY: right facial paresthesia, eye pain; fam hx of ICH. TECHNIQUE: Imaging Protocol: Axial CT angiography was performed with multi-slice acquisition and mu lti-planar and/or 3D reconstructions. CONTRAST MATERIAL: Intravenous: Omnipaque 350 contrast volume:85 mL COMPARISON: No exams were available for comparison FINDINGS: CT Head W/O and W: Ventricles and Extra axial spaces: Normal in size and morphology for the patient's age. Hemorrhage: None. Cerebral parenchyma: There is no evidence of an acute territorial infarct. Midline shift: None. Brainstem/Cerebellum: Normal. Calvarium: Normal. Visualized Paranasal sinuses/Mastoids: Clear. Soft Tissues: Unremarkable. Enhancement: Unremarkable. CTA Neck W: Common Carotid: Right: No dissection, occlusion or significant stenosis. Left: No dissection, occlusion or significant stenosis. There is atherosclerosis in the distal commo n carotid artery. External Carotid: Right: No occlusion or significant stenosis. Left: No occlusion or significant stenosis. Internal Carotid: Right: No dissection, occlusion or significant stenosis. Atherosclerosis. Left: No dissection, occlusion or significant stenosis. Atherosclerosis. Vertebral Artery: Right: No dissection, occlusion or significant stenosis. Left: No dissection, occlusion or significant stenosis. Lung Apices: Normal. Bones: Within normal limits for the patient's age. Soft Tissues: Normal. Thyroid gland: Unremarkable. CTA Brain W: Internal Carotid Arteries: Atherosclerosis. No aneurysm, occlusion or significant stenosis. Anterior Cerebral Arteries: Right: No aneurysm, occlusion or significant stenosis. Left: No aneurysm, occlusion or significant stenosis. Middle Cerebral Arteries: Right: No aneurysm, occlusion or significant stenosis. Left: No aneurysm, occlusion or significant stenosis. Posterior Cerebral Arteries: Right: No aneurysm, occlusion or significant stenosis. The right posterior cerebral artery arises fr om the posterior communicating artery which is a normal variant. Left: No aneurysm, occlusion or significant stenosis. Vertebral Arteries: Right: No aneurysm, occlusion or significant stenosis. Left: No aneurysm, occlusion or significant stenosis. Basilar Artery: No aneurysm, occlusion or significant stenosis. IMPRESSION: 1. No large vessel occlusion or significant stenosis on the CT angiography of the head. 2. No acute intracranial process. 3. No occlusion or significant stenosis on the CT angiography of the neck. 4. Findings were discussed with the emergency department at 3:18 p.m. on 05/10/2022. RADIATION DOSE DELIVERED: 1,804.77mGy.cm Total DLP DATA REPOSITORY: All CT scans at this facility are submitted to the National Radiology Data Registry (NRDR) Dose Index Registry (DIR) with the [employer] [place] [employer] (ACR). RADIATION OPTIMIZATION: All CT scans at this facility use at least one of these dose optimization te chniques: automated exposure control; mA and/or kV adjustment per patient size (includes targeted exa ms where dose is matched to clinical indication); or iterative reconstruction.
--- NOTE | 2022-05-10 13:18 | ED.GENADUL_ITS ---
Discharge Plan Disposition Patient Disposition: Home Condition: Improving Discharge Details Chief Complaint: Headache Clinical Impression: Facial paresthesia Primary Care Provider: Brandy Suresh ED Provider: Pratik Evans Home Meds and New Rx's Prescriptions: No Action aspirin [Aspir-81] 81 MG tablet,delayed release (DR/EC) 81 mg PO DAILY atorvastatin [Lipitor] 40 mg Tablet 80 mg PO QPM Qty: 30 0RF nitroglycerin [Nitrostat] 0.4 mg Tablet, Sublingual 0.4 mg Sublingual Q5 MIN PRN X3 PRNQty: 20 0RF potassium 99 mg Tablet 99 mg PO DAILY ascorbic acid (vitamin C) [Vitamin C] 500 mg Tablet 500 mg PO DAILY magnesium 250 mg Tablet 250 mg PO DAILY [place] Complex Capsule 3 cap PO DAILY cholecalciferol (vitamin D3) [Vitamin D3] 125 mcg (5,000 unit) Tablet 5,000 unit PO DAILY lecithin 1,000 mg Tablet,Chewable 1,680 mg PO DAILY Discharge Instructions Instructions: Trigeminal Neuralgia (ED), Paresthesia (ED) Additional Instructions: Please follow-up with neurology specialist as scheduled. Please return to the emergency part for any worsening symptoms. Medical Decision Making 82-year-old male history of hypertension, macular degeneration, family history of stroke, presents with 1 week of right facial paresthesia/numbness as well as pain behind right eye, no change in his visual acuity despite recent treatment for macular degeneration. Afebrile nontoxic alert oriented normal speech cranial nerves intact moving all extremities with full strength, no ataxia. Pupils equal round reactive to light extraocular motion intact, TMs clear, no facial rashes; consider trigeminal neuralgia versus tension headache versus mild cluster headache versus must consider vascular aneurysm versus intracranial hemorrhage however less likely. Will obtain basic labs CT CTA head neck. Disposition likely follow-up with neurology and primary care pending results and imaging 15: 28 facial paresthesia largely resolved. Neurologically intact. Hemodynamically stable. CTA head and neck unremarkable. Consider trigeminal neuralgia versus mild cluster headache versus tension headache. Patient given home care instructions and return precautions. Will be given follow-up with neurology team. HPI General Date/Time Provider Initiated Documentation: 05/10/22 12:56 . HPI Narrative: 82-year-old male history of hypertension, macular degeneration, presents with over 1 week of right eye and facial discomfort described as a numbness/tingling with a sharper pain behind his right eye intermittent in nature worse in the evening now more consistent throughout the day. Endorses frequent visits for his macular degeneration and injection into his left thigh, no recent change in his visual acuity; family history, maternal stroke Related Data Home Medications Medication Instructions Recorded Confirmed aspirin 81 mg tablet,delayed 81 mg PO DAILY 06/18/14 12/21/21 release (Aspir-) atorvastatin 40 mg tablet (Lipitor) 80 mg PO QPM #30 tabs 07/03/18 12/21/21 nitroglycerin 0.4 mg sublingual 0.4 mg sublingual Q5 MIN PRN X3 07/03/18 12/21/21 tablet (Nitrostat) PRN #20 tabs Zn-pyg [id number]-sbymgb-zcl palmet 3 cap PO DAILY 12/20/21 12/20/21 capsule ascorbic acid (vitamin C) 500 mg 500 mg PO DAILY 12/20/21 12/21/21 tablet (Vitamin C) cholecalciferol (vitamin D3) 125 5,000 unit PO DAILY 12/20/21 12/21/21 mcg (5,000 unit) tablet (Vitamin D3) lecithin 1,000 mg chewable tablet 1,680 mg PO DAILY 12/20/21 12/21/21 magnesium 250 mg tablet 250 mg PO DAILY 12/20/21 12/21/21 potassium 99 mg tablet 99 mg PO DAILY 12/20/21 12/21/21 Previous Rx's Medication Instructions Recorded atorvastatin 40 mg tablet (Lipitor) 80 mg PO QPM #30 tabs 07/03/18 nitroglycerin 0.4 mg sublingual 0.4 mg sublingual Q5 MIN PRN X3 07/03/18 tablet (Nitrostat) PRN #20 tabs Allergies Allergy/AdvReac Type Severity Reaction Status Date / Time No Known Allergies Allergy Unverified 12/21/21 09:32 General Stated Complaint: Headache TALIB: 3 Review of Systems Narrative: Review of Systems Constitutional: negative Eyes: negative ENT: Facial paresthesia, eye pain Cardiovascular: negative Respiratory: negative Gastrointestinal: negative : negative Musculoskeletal: negative Skin: negative Neurologic: negative Psych: negative PFSH All Active Problems (Updated 05/10/22 @ 15:30 by Pratik Evans MD) Facial paresthesia (Acute) Hypertension (Chronic) Abnormal stress test (Acute) Macular degeneration (Acute) DVT prophylaxis (Acute) Stable angina (Acute) Medical History Aortic aneurysm Pt. is unsure if he has this. Pt. 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 Hx of colonoscopy Social History (Updated 07/02/18 @ 21:44 by Brayan Fontenot MD) Smoking/Tobacco Use Status: Never Smoking risk assessment performed?: Yes Alcohol Intake: never Drug use: Never Substance use type: does not use Do you feel safe at home: Yes Additional Social history: lives alone- Has neighbor and sister that will help him Exam Narrative Exam Narrative: Physical Examination General: alert, awake, cooperative, resting comfortably, no acute distress HEENT: normocephalic, atraumatic; PERRL, EOM intact, conjunctiva normal; no nasal discharge; moist mucous membranes, oral and pharyngeal mucosa normal, tolerating secretions TMs clear bilaterally, no rashes to face; Neck: supple, trachea midline; full ROM Chest: normal to inspection Respiratory: normal respiratory effort, speaking in full sentences, clear to auscultation, no wheezing, rales or rhonchi Cardiac: regular rate, regular rhythm, S1S2 intact, no murmurs rubs or gallops GI: abdomen soft, non-tender, non-distended; no palpable mass or hepatosplenomegaly Skin: no lesions, rashes or trauma appreciated Neuro: AAOx3, normal speech, moving all extremities; cranial nerves II through XII intact, normal speech, 5 out of 5 strength upper and lower extremities, no ataxia Psych: Appropriate mood and affect Course Vital Signs Vital signs: Vital Signs Temperature 37.1 C 05/10/22 12:41 Pulse 85 05/10/22 12:41 Respiratory Rate 18 05/10/22 12:41 Blood Pressure 175/84 H 05/10/22 12:41 Pulse Oximetry 96 05/10/22 12:41 Temperature 37.1 C 05/10/22 12:41 Temperature Source Skin 05/10/22 12:41 Pulse 85 01/13/23 12:41 Respiratory Rate 18 05/10/22 12:41 Respiratory Effort 05/10/22 12:46 Blood Pressure 175/84 H 05/10/22 12:41 Blood Pressure Position Sitting 05/10/22 12:41 Pulse Oximetry 96 05/10/22 12:41 Oxygen Delivery Method Room Air 05/10/22 12:41 Oxygen Flow Rate 0 05/10/22 12:41 Pain Level 4 05/10/22 12:41
[2022-05-10 13:22] LABS: Abs Immature Grans 0.04 10^3/uL (0.0-0.06); Absolute Basophil Count 0.05 10^3/uL (0.0-0.2); Absolute Eosinophil Count 0.02 10^3/uL (0.0-0.7); Absolute Monocyte Count 0.59 10^3/uL (0.1-0.8); Absolute Neutrophil Count 7.99 10^3/uL (1.2-6.7); Basophils % 0.4; Eosinophils % 0.2; HCT 46.4 % (40.0-50.0); HGB 15.7 g/dL (13.5-17.5); Immature Grans % 0.4; MCH 30.4 pg (27.0-33.0); MCHC 33.8 % (32.0-36.0); MCV 90 fL (80-95); MPV 9.4 fL (8.0-11.0); Monocytes % 5.2; Neutrophils % 70.8; Platelet Count 211 10^3/uL (130-400); RBC 5.16 10^6/uL (4.36-5.78); RDW 12.8 % (11.8-14.1); RDW-SD 42.5 fL; WBC 11.29 10^3/uL (4.4-10.8)
[2022-05-10 13:45] LABS: ALT 20 U/L (16-63); AST 18 U/L (15-37); Albumin 4.1 g/dL (3.4-5.0); Alkaline Phosphatase 106 U/L (46-116); BUN 16 mg/dL (7-18); CREATININE 1.1 mg/dL (0.70-1.30); Calcium 8.9 mg/dL (8.5-10.1); Chloride 101 mmol/L (98-107); Estimated GFR 67.86 (mL/min/1.73m2); Glucose 103 mg/dL (74-106); Potassium 4.3 mmol/L (3.5-5.1); Sodium 136 mmol/L (136-145); Total Protein 7.8 g/dL (6.4-8.2)
[2022-05-10] MEDS: Omnipaque 350 MG/ML 100 ML BTL 85 ML IJ (14:23)
--- NOTE | 2022-05-10 15:31 | NUR.NOTE ---
Nursing Note: PT info faxed to Neurology for follow up next week for facial parasthesia. Tatiana, ED
== END 2022-05-10 16:06 | disposition home or self-care (01) ==
PROVIDERS: Emergency Provider Emergency Medicine; PCP Family Medicine
DX: R20.2 Paresthesia of skin (principal); I10 Essential (primary) hypertension; Z86.73 Personal history of transient ischemic attack (TIA), and cerebral infarction without residual deficits
CPT/HCPCS: 70496; 70498; 80053; 99285; 85025; 99281; J3490

== ENCOUNTER 2022-09-24 13:04 | Outpatient (REF) | payer MEDICARE, OTHER, SELFPAY ==
[2022-09-24 16:05] LABS: ALT 33 U/L (16-63); AST 23 U/L (15-37); Albumin 4.1 g/dL (3.4-5.0); Alkaline Phosphatase 102 U/L (46-116); Anion Gap 5.1 mmol/L (3-11); BUN 15 mg/dL (7-18); Bilirubin, Total 0.8 mg/dL (0.2-1.0); CO2 29.9 mmol/L (21.0-32.0); Calcium 8.7 mg/dL (8.5-10.1); Calculated LDL 74 mg/dL (<100); Chloride 105 mmol/L (98-107); Cholesterol 126 mg/dL (<200); Estimated GFR 76.08 (mL/min/1.73m2); Glucose 101 mg/dL (74-106); HDL Cholesterol 46 mg/dL (40-60); Potassium 5.2 mmol/L (3.5-5.1); Sodium 140 mmol/L (136-145); Total Protein 7.1 g/dL (6.4-8.2); Triglyceride 33 mg/dL (<150)
== END 2022-09-24 13:05 | disposition home or self-care (01) ==
LOC: NCHCN 13:04
PROVIDERS: PCP Family Medicine; Visit Provider Family Medicine
DX: E78.5 Hyperlipidemia, unspecified (principal); R03.0 Elevated blood-pressure reading, without diagnosis of hypertension; I25.810 Atherosclerosis of coronary artery bypass graft(s) without angina pectoris
CPT/HCPCS: 80053; 80061

== ENCOUNTER 2024-02-05 20:28 | Outpatient (REF) | payer MEDICARE, SELFPAY ==
[2024-02-05 17:49] LABS: ALT 38 U/L (16-63); AST 21 U/L (15-37); Albumin 4.2 g/dL (3.4-5.0); Alkaline Phosphatase 99 U/L (46-116); Anion Gap 8.1 mmol/L (3-11); BUN 32 mg/dL (7-18); CO2 28.9 mmol/L (21.0-32.0); CREATININE 1.1 mg/dL (0.70-1.30); Calculated LDL 95 mg/dL (<100); Chloride 106 mmol/L (98-107); Cholesterol 159 mg/dL (<200); Estimated GFR 67.44 (mL/min/1.73m2); Glucose 91 mg/dL (74-106); HDL Cholesterol 51 mg/dL (40-60); Potassium 5.1 mmol/L (3.5-5.1); Sodium 143 mmol/L (136-145); Total Protein 7.2 g/dL (6.4-8.2); Triglyceride 67 mg/dL (<150); Vitamin D 25 Total 54.2 ng/mL (30-100)
== END 2024-02-05 20:29 | disposition home or self-care (01) ==
LOC: NCHCN 20:28
PROVIDERS: PCP Family Medicine; Visit Provider Family Medicine
DX: E78.5 Hyperlipidemia, unspecified (principal); E56.9 Vitamin deficiency, unspecified
CPT/HCPCS: 80053; 80061; 82306

== ENCOUNTER 2024-02-08 19:47 | Emergency (ER) | payer MEDICARE, OTHER, SELFPAY ==
[2024-02-08] VITALS (9 sets, daily range): BP systolic 150–190; BP diastolic 60–79; PULSE 80–93; RESP 16–20; TEMP 37.1–37.5; O2SAT 98–100
--- NOTE | 2024-02-08 20:04 | ED.GENADUL_ITS ---
Discharge Plan Disposition Patient Disposition: Home Condition: Stable Discharge Details Clinical Impression: Acute UTI, Fever Primary Care Provider: Brandy Suresh ED Provider: Nita Noel Home Meds and New Rx's Prescriptions: New ciprofloxacin HCl [Cipro] 500 mg tablet 500 mg PO BID Qty: 12 0RF Saccharomyces boulardii [Florastor] 250 mg capsule 250 mg PO BID Qty: 14 0RF Continued aspirin [Aspir-81] 81 MG tablet,delayed release (DR/EC) 81 mg PO DAILY atorvastatin [Lipitor] 40 mg Tablet 80 mg PO QPM Qty: 30 0RF nitroglycerin [Nitrostat] 0.4 mg Tablet, Sublingual 0.4 mg Sublingual Q5 MIN PRN X3 PRNQty: 20 0RF potassium 99 mg Tablet 99 mg PO DAILY ascorbic acid (vitamin C) [Vitamin C] 500 mg Tablet 500 mg PO DAILY magnesium 250 mg Tablet 250 mg PO DAILY Zn-pyg dbdw-[id number]-kxk palmet Capsule 3 cap PO DAILY cholecalciferol (vitamin D3) [Vitamin D3] 125 mcg (5,000 unit) Tablet 5,000 unit PO DAILY lecithin 1,000 mg Tablet,Chewable 1,680 mg PO DAILY Discharge Instructions Instructions: Urinary Tract Infection, Adult ED, Fever, Adult ED Additional Instructions: Please take the antibiotics as prescribed Florastor daily while on antibiotics Please be reevaluated by your primary care physician in 48 hours and return immediately should you have new or worsening complaints including persistent fever greater than 3 days Referrals: Brandy Suresh [Primary Care Provider] - 1 day Discharge Data Discharge Date/Time-TO BE ENTERED AT DEPARTURE: 02/08/24 22:55 HPI General Date/Time Provider Initiated Documentation: 02/08/24 20:03 . HPI Narrative: This 83-year-old male with history of quadruple bypass, hypertension, and hyperlipidemia presents with urinary symptoms that started yesterday and chills today. Denies any flank pain or abdominal pain. States he feels lightheaded today. Has not taken any antipyretics prior to arrival. Denies any additional complaints at this time. Denies chest pain or shortness of breath. Related Data Home Medications ?Medication ?Instructions ?Recorded ?Confirmed aspirin 81 mg tablet,delayed 81 mg PO DAILY 06/18/14 12/21/21 release (Aspir-) atorvastatin 40 mg tablet (Lipitor) 80 mg (2 x 40 mg) PO QPM #30 tabs 07/03/18 12/21/21 nitroglycerin 0.4 mg sublingual 0.4 mg sublingual Q5 MIN PRN X3 07/03/18 12/21/21 tablet (Nitrostat) PRN #20 tabs Zn-pyg cypv-cuornl-klm palmet 3 cap PO DAILY 12/20/21 12/20/21 capsule ascorbic acid (vitamin C) 500 mg 500 mg PO DAILY 12/20/21 12/21/21 tablet (Vitamin C) cholecalciferol (vitamin D3) 125 5,000 unit PO DAILY 12/20/21 12/21/21 mcg (5,000 unit) tablet (Vitamin D3) lecithin 1,000 mg chewable tablet 1,680 mg PO DAILY 12/20/21 12/21/21 magnesium 250 mg tablet 250 mg PO DAILY 12/20/21 12/21/21 potassium 99 mg tablet 99 mg PO DAILY 12/20/21 12/21/21 Saccharomyces boulardii 250 mg 250 mg PO BID #14 caps 02/08/24 capsule (Florastor) ciprofloxacin HCl 500 mg tablet 500 mg PO BID #12 tabs 02/08/24 (Cipro) Previous Rx's ?Medication ?Instructions ?Recorded atorvastatin 40 mg tablet (Lipitor) 80 mg (2 x 40 mg) PO QPM #30 tabs 07/03/18 nitroglycerin 0.4 mg sublingual 0.4 mg sublingual Q5 MIN PRN X3 07/03/18 tablet (Nitrostat) PRN #20 tabs Saccharomyces boulardii 250 mg 250 mg PO BID #14 caps 02/08/24 capsule (Florastor) ciprofloxacin HCl 500 mg tablet 500 mg PO BID #12 tabs 02/08/24 (Cipro) Allergies Allergy/AdvReac Type Severity Reaction Status Date / Time No Known Allergies Allergy Unverified 12/21/21 09:32 General Stated Complaint: Urinary TALIB: 4 Exam Narrative Exam Narrative: 83-year-old male, alert, oriented, no acute distress, pupils equal round reactive to light and accommodation, lungs clear to auscultation, cardiac rate rhythm regular, no abdominal tenderness, rebound or guarding, alert and oriented x 4, no peripheral edema, no meningismus Course Vital Signs Vital signs: Vital Signs Temperature 37.1 C 02/08/24 19:51 Pulse 92 H 02/08/24 19:51 Respiratory Rate 20 02/08/24 19:51 Blood Pressure 190/79 H 02/08/24 19:51 Pulse Oximetry 99 02/08/24 19:51 Temperature 37.1 C 02/08/24 20:01 Temperature Source Oral 02/08/24 20:01 Pulse 92 H 02/08/24 20:01 Respiratory Rate 20 02/08/24 20:01 Respiratory Effort Normal 02/08/24 20:01 Blood Pressure 190/79 H 02/08/24 20:01 Blood Pressure Position Sitting 02/08/24 20:01 Pulse Oximetry 99 02/08/24 20:01 Oxygen Delivery Method Room Air 02/08/24 20:01 Oxygen Flow Rate 0 02/08/24 19:51 Medical Decision Making 83-year-old male presenting with temperature of 102.5 urinary symptoms. CBC, white blood cell count of 20,000 labs. He is alert oriented labs and vitals are stable, his repeat temperature reviewed as well 100.4 he is ambulatory steady gait and well-appearing. Blood cultures are pending. His urinary symptoms and urine cultures pending at this time so we will treat empirically with Cipro. Low suspicion clinically for prostatitis. No flank pain with assessment, no indication for CT imaging at this time. Chest x-ray per radiology interpretation and my review does not show evidence of acute infiltrate. So patient is appropriate for discharge home at this time, he will need emergent reassessment symptoms worsen or fever persist despite taking medications. Reche ck in 24 to 48 hours recommended. Quality:SDOH Health Related Social Needs: No Data to Display PFSH All Active Problems (Updated 02/08/24 @ 22:21 by TOBIAS [place]) Fever (Acute) Acute UTI (Acute) Hypertension (Chronic) Abnormal stress test (Acute) Macular degeneration (Acute) DVT prophylaxis (Acute) Stable angina (Acute) Medical History Aortic aneurysm Pt. is unsure if he has this. Pt. 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
[2024-02-08] MEDS: Acetaminophen 325 MG TAB 650 MG PO (20:05)
[2024-02-08 20:06] LABS: Bilirubin Negative (Negative); Blood Moderate (Negative); Clarity Clear (Clear); Glucose Negative (Negative); Ketones Negative (Negative); Leukocyte Esterase Small (Negative); Nitrite Negative (Negative); Urobilinogen 0.2 mg/dL (Up to 0.2); pH 6.5 (5-8)
--- NOTE | 2024-02-08 20:15 | DI.RAD_ITS ---
Exam(s) XR CHEST 2V PA LATERAL EXAM: XR CHEST 2V PA LATERAL CLINICAL HISTORY: fever TECHNIQUE: 2D digital imaging was performed of the chest. Two images were obtained. PA and lateral views were obtained. COMPARISON: No exams were available for comparison FINDINGS: MEDIASTINUM: Normal. HEART: Normal. Status post CABG. PULMONARY VASCULATURE: Normal. LUNGS: Clear. PLEURAL SPACE: No pleural effusion or pneumothorax. BONE:Within normal limits for the patient's age. OTHER FINDINGS:Normal. BONE:Within normal limits for the patient's age. Sternal wires are in place. IMPRESSION: No acute pulmonary findings. DATA REPOSITORY: RADIATION DOSE DELIVERED:
[2024-02-08 20:18] LABS: Bacteria Negative HPF (Negative); C & S Indicated? No; Casts Negative LPF (Negative); Crystals Negative HPF (Negative); Epithelial Cells Rare HPF (Negative); Mucus Negative (Negative); RBC 0-2 HPF (0-2)
[2024-02-08 20:53] LABS: Abs Immature Grans 0.07 10^3/uL (0.0-0.06); Absolute Eosinophil Count 0.02 10^3/uL (0.0-0.7); Absolute Lymphocyte Count 4.82 10^3/uL (1.2-3.4); Basophils % 0.2 %; Eosinophils % 0.1 %; HGB 15.6 g/dL (13.5-17.5); Immature Grans % 0.3 %; MCH 31.1 pg (27.0-33.0); MCHC 33.2 % (32.0-36.0); MCV 94 fL (80-95); MPV 9.3 fL (8.0-11.0); Monocytes % 6.2 %; Neutrophils % 69.2 %; Platelet Count 187 10^3/uL (130-400); RBC 5.01 10^6/uL (4.36-5.78); RDW 12.3 % (11.8-14.1); RDW-SD 42.7 fL
[2024-02-08 20:57] LABS: Absolute Basophil Count 0.04 10^3/uL (0.0-0.2); Absolute Monocyte Count 1.25 10^3/uL (0.1-0.8); Absolute Neutrophil Count 13.91 10^3/uL (1.2-6.7); Lactate 1.34 mmol/L (0.9-1.7)
[2024-02-08 21:18] LABS: ALT 36 U/L (16-63); AST 25 U/L (15-37); Albumin 4.2 g/dL (3.4-5.0); Alkaline Phosphatase 101 U/L (46-116); Anion Gap 9.4 mmol/L (3-11); BUN 15 mg/dL (7-18); Bilirubin, Total 1.12 mg/dL (0.2-1.0); CO2 29.6 mmol/L (21.0-32.0); Calcium 9.2 mg/dL (8.5-10.1); Chloride 103 mmol/L (98-107); Estimated GFR 75.61 (mL/min/1.73m2); Glucose 99 mg/dL (74-106); Potassium 4.5 mmol/L (3.5-5.1); Sodium 142 mmol/L (136-145); Total Protein 7.8 g/dL (6.4-8.2)
[2024-02-08 21:28] LABS: Creatine Kinase 94 U/L (39-308)
[2024-02-08 21:29] LABS: COVID-19 PCR Negative (Negative); Influenza A PCR Negative (Negative); Influenza B PCR Negative (Negative); RSV PCR Negative (Negative)
[2024-02-08 21:30] LABS: Source Nasopharynx
--- NOTE | 2024-02-08 23:21 | DI.VRAD_ITS ---
PROCEDURE INFORMATION: Exam: XR Chest Exam date and time: 02/08/2024 9:00 PM Age: 83 years old Clinical indication: Fever; Additional info: Cabg 6 years ago TECHNIQUE: Imaging protocol: Radiologic exam of the chest. Views: 2 views. COMPARISON: CT BRAIN NECK CTA 05/10/2022 2:14 PM FINDINGS: Lungs: Unremarkable. No consolidation. Pleural spaces: Unremarkable. No pleural effusion. No pneumothorax. Heart/Mediastinum: Unremarkable. No cardiomegaly. Bones/joints: Sternotomy changes noted. IMPRESSION: No acute process Dictated and Authenticated by: Nolvia Skelton MD. Ordering:CYRUS Moya MD
[2024-02-10 11:06] LABS: Lyme Ab w Rflx to Lyme Confirm Positive (Negative)
[2024-02-10 12:39] LABS: Lyme IgG Ab Positive (Negative); Lyme IgM Ab Negative (Negative)
[2024-02-12 09:18] LABS: Anaplasma phagocytophilum Negative (Negative); B. miyamotoi PCR Negative (Negative); Babesia divergens/MO-1 Negative (Negative); Babesia duncani Negative (Negative); Babesia microti Negative (Negative); Ehrlichia chaffeensis Negative (Negative); Ehrlichia ewingii/canis Negative (Negative); Ehrlichia muris eauclairensis Negative (Negative)
== END 2024-02-08 22:55 | disposition home or self-care (01) ==
PROVIDERS: Emergency Provider Physician Assistant; PCP Family Medicine
DX: N39.0 Urinary tract infection, site not specified (principal); R50.9 Fever, unspecified; I25.10 Atherosclerotic heart disease of native coronary artery without angina pectoris; I10 Essential (primary) hypertension; E78.5 Hyperlipidemia, unspecified; Z95.1 Presence of aortocoronary bypass graft; Z79.82 Long term (current) use of aspirin
CPT/HCPCS: 80053; 82550; 86617; 87040; 87077; 87637; 87798; 99284; 71046; 81003; 81015; 83605; 85025; 86618; 87086; 87186; 99283

== ENCOUNTER 2024-12-24 17:15 | Outpatient (REF) | payer MEDICARE, OTHER, SELFPAY ==
[2024-12-24 23:13] LABS: PSA, Diagnostic 22.6 ng/mL (<=6.5)
[2024-12-27 12:14] LABS: Lyme Ab w Rflx to Lyme Confirm Positive (Negative)
[2024-12-28 08:20] LABS: Lyme IgG Ab Positive (Negative)
== END 2024-12-24 17:16 | disposition home or self-care (01) ==
LOC: NCHCN 17:15
PROVIDERS: PCP Family Medicine; Visit Provider Nurse Practitioner Family
DX: R30.0 Dysuria (principal)
CPT/HCPCS: 86617; 84153; 86618; 87086

== ENCOUNTER 2025-02-11 21:37 | Outpatient (REF) | payer MEDICARE, OTHER, SELFPAY ==
[2025-02-11 22:17] LABS: ALT 41 U/L (16-63); AST 29 U/L (15-37); Albumin 4.2 g/dL (3.4-5.0); Alkaline Phosphatase 106 U/L (46-116); Anion Gap 6.8 mmol/L (3-11); BUN 11 mg/dL (7-18); Bilirubin, Total 0.8 mg/dL (0.2-1.0); CO2 28.2 mmol/L (21.0-32.0); Calcium 8.8 mg/dL (8.5-10.1); Calculated LDL 85 mg/dL (<100); Chloride 103 mmol/L (98-107); Cholesterol 142 mg/dL (<200); Estimated GFR 88.36 (mL/min/1.73m2); Glucose 90 mg/dL (74-106); HDL Cholesterol 41 mg/dL (>or=40); Potassium 4.8 mmol/L (3.5-5.1); Sodium 138 mmol/L (136-145); Total Protein 6.9 g/dL (6.4-8.2); Triglyceride 82 mg/dL (<150)
[2025-02-14 10:51] LABS: PSA, Screening 2.8 ng/mL (<=6.5)
== END 2025-02-11 21:38 | disposition home or self-care (01) ==
LOC: NCHCN 21:37
PROVIDERS: PCP Family Medicine; Visit Provider Family Medicine
DX: E78.5 Hyperlipidemia, unspecified (principal); N40.0 Benign prostatic hyperplasia without lower urinary tract symptoms; R03.0 Elevated blood-pressure reading, without diagnosis of hypertension
CPT/HCPCS: 80053; 80061; 84153